=== PATIENT | male | born 1965 | race Caucasian/White ===

== ENCOUNTER 2022-06-14 21:31 | Emergency (ER) | payer OTHER, SELFPAY ==
[2022-06-14 21:34] VITALS: BP 182/70; PULSE 91; RESP 18; TEMP 36.1; O2SAT 97; BMI 34.7
[2022-06-14 22:59] LABS: MANUAL DIFF FLAG NO
[2022-06-14 23:00] LABS: Basophils Absolute Auto 0.1 X10*3/uL (0.0-0.2); Basophils Percent Auto 0.6 % (0-2); Eosinophils Absolute Auto 0.1 X10*3/uL (0.0-0.4); Eosinophils Percent Auto 1.3 % (0-4); Hematocrit 41.1 % (42.0-52.0); Imm Gran Abs Auto 0.04 X10*3/uL (0.00-0.03); Imm Gran Pct Auto 0.4 % (0.0-0.4); Lymphocytes Absolute Auto 2.3 X10*3/uL (1.2-4.9); Lymphocytes Percent Auto 23.5 % (20-40); Mean Corpuscular HGB Conc 34.1 g/dl (31.0-36.0); Mean Corpuscular Hemoglobin 31.3 pg (27.0-33.0); Mean Corpuscular Volume 91.7 fL (80.0-98.0); Mean Platelet Volume 9.3 fL (9.4-12.4); Monocytes Absolute Auto 0.6 X10*3/uL (0.1-1.2); Neutrophils Absolute Auto 6.6 x10*3/uL (2.0-8.3); Neutrophils Percent Auto 68.2 % (45-73); Platelet Count 266 X10*3/uL (160-400); Red Blood Count 4.48 X10*6/uL (4.60-5.80); Red Cell Distribution Width 13.6 % (11.0-16.0); White Blood Count 9.6 X10*3/uL (4.8-10.8)
[2022-06-14 23:16] LABS: Alanine Aminotransferase 15 U/L (0-40); Albumin Level 4.5 g/dL (3.5-5.0); Alkaline Phosphatase 89 U/L (39-117); Anion Gap 14 (12-20); Aspartate Amino Transferase 16 U/L (5-37); Bilirubin Total 0.2 mg/dL (0.0-1.0); Blood Urea Nitrogen 15 mg/dL (9-16); Calcium 9.3 mg/dL (8.4-10.2); Carbon Dioxide 26 mmol/L (22-29); Chloride 108 mmol/L (96-108); Creatinine Clr Calc Pharmacy 113.9; Estimated Glomerular Filt Rate > 60; Glucose Random 129 mg/dL (60-115); Potassium 3.9 mmol/L (3.3-5.1); Sodium 144 mmol/L (135-145); Total Protein 6.9 g/dL (6.5-8.0)
--- NOTE | 2022-06-15 00:38 | ED.LOWEXIN ---
HPI - Extremity Injury (Lower) General Chief Complaint: Extremity Injury, Lower Stated Complaint: hip pain Time Seen by Provider: 06/15/22 00:33 Source: patient Mode of arrival: ambulatory Limitations: no limitations History of Present Illness HPI Narrative: 48-year-old male morbidly obese presents emergency department complaining of left hip pain. Patient states that he has got COPD and chronic right knee pain which he needs replacement for as well as right ankle pain which he needs a fusion. He states he has been favoring that leg for some time and now his left hip is hurting it has been gradually getting worse over the past 2 weeks he denies any falls or new injuries he denies fevers chills or cough. complaint: hip injury Related Data Previous Rx's Medication Instructions Recorded prednisone 20 mg tablet 60 mg PO DAILY Asthma 5 days #15 06/15/22 tabs Allergies Allergy/AdvReac Type Severity Reaction Status Date / Time No Known Allergies Allergy Verified 06/15/22 00:38 Review of Systems Review of Systems: Review of systems: General: Patient denies any fever chills recent illness or falls Musculoskeletal: Denies back pain or body aches or other injuries HEENT: denies headache, runny nose, ear pain Respiratory: denies shortness of breath, cough Cardiovascular: no chest pain or palpitations : denies dysuria, frequency Abdomen: no nausea vomiting denies abdominal pain Extremities: no swelling, no pain Skin: no diaphoresis Yes all other systems are reviewed and are negative Physical Exam Vital Signs: Vital Signs: Last Vital Signs Temp 96.9 F 06/14/22 21:34 Pulse 91 06/14/22 21:34 Resp 18 06/14/22 21:34 BP 182/70 H 06/14/22 21:34 Pulse Ox 97 06/14/22 21:34 O2 Del Method 06/14/22 21:34 BMI result Body Mass Index 34.7 General: Well-appearing well-nourished in no signs of distress HEENT: Normocephalic atraumatic Neck: No signs of JVD, no masses no tenderness or lymphadenopathy Cardiovascular: Regular rate and rhythm Respiratory: Clear to auscultation bilaterally Abdomen: Soft nontender no masses Extremities: Normal pedal pulses no signs of edema reproducible pain to left groin worse with movement of the hip Skin: Dry warm no rashes Back: No tenderness full ROM MDM - Extremity Injury (Lower) MDM Narrative Medical decision making narrative: X-ray of the hip does not show any acute disease process patient is concerned that his hip could dislocate x-ray is normal feel comfortable discharging this patient home I explained the need to follow-up with orthopedics all increase his prednisone to 60 mg a day as he takes 20 daily will give the patient Toradol here. Was already given codeine to help him sleep at night. Lab Data Result diagrams: 06/14/22 22:52 06/14/22 22:52 Labs: Lab Results 06/14/22 06/14/22 Range/Units 22:52 22:52 WBC 9.6 (4.8-10.8) X10*3/uL RBC 4.48 L (4.60-5.80) X10*6/uL Hgb 14.0 (14.0-18.0) g/dl Hct 41.1 L (42.0-52.0) % MCV 91.7 (80.0-98.0) fL MCH 31.3 (27.0-33.0) pg MCHC 34.1 (31.0-36.0) g/dl RDW 13.6 (11.0-16.0) % Plt Count 266 (160-400) X10*3/uL MPV 9.3 L (9.4-12.4) fL Immature Gran % (Auto) 0.4 (0.0-0.4) % Neut % (Auto) 68.2 (45-73) % Lymph % (Auto) 23.5 (20-40) % Vance % (Auto) 6.0 (2-11) % Eos % (Auto) 1.3 (0-4) % Baso % (Auto) 0.6 (0-2) % Lymph # (Auto) 2.3 (1.2-4.9) X10*3/uL Vance # (Auto) 0.6 (0.1-1.2) X10*3/uL Eos # (Auto) 0.1 (0.0-0.4) X10*3/uL Baso # (Auto) 0.1 (0.0-0.2) X10*3/uL Abs Immat Gran (auto) 0.04 H (0.00-0.03) X10*3/uL Absolute Neuts (auto) 6.6 (2.0-8.3) x10*3/uL Absolute Nucleated RBC 0.000 (0.0-0.012) X10*3/uL Nucleated RBC % (auto) 0.0 (0.0-0.2) /100WBC Sodium 144 (135-145) mmol/L Potassium 3.9 (3.3-5.1) mmol/L Chloride 108 (96-108) mmol/L Carbon Dioxide 26 (22-29) mmol/L Anion Gap 14 (12-20) BUN 15 (9-16) mg/dL Creatinine 0.85 (0.5-1.4) mg/dL Estim Creat Clear Calc 113.9 Estimated GFR > 60 Random Glucose 129 H (60-115) mg/dL Calcium 9.3 (8.4-10.2) mg/dL Total Bilirubin 0.2 (0.0-1.0) mg/dL AST 16 (5-37) U/L ALT 15 (0-40) U/L Alkaline Phosphatase 89 (39-117) U/L Total Protein 6.9 (6.5-8.0) g/dL Albumin 4.5 (3.5-5.0) g/dL Discharge Plan Discharge Clinical Impression: Inguinal strain Patient Disposition: Home, Self-Care Instructions: Groin Strain (ED) Additional Instructions: Please call to follow up for your hip. [facility] Prescriptions: New prednisone 20 mg tablet 60 mg PO DAILY 5 Days Qty: 15 0RF
--- OUTSIDE RECORDS SUMMARY | 2022-06-15 00:47 | XMS_ITS | Encounter Summary ---
:1965 Author Organization Department of [facility] Address [address] [place] [id number] Support
--- OUTSIDE RECORDS SUMMARY | 2022-06-15 00:48 | XMS_ITS | Encounter Summary ---
:1965 Author Organization Department of [facility] Address [address] [place] [address] Support Name Relationship Address Phone BLAZE NICHOLE Unavailable [address] [facility] [place] [address] BLAZE NICHOLE Unavailable [address] [facility] [place] [address] ISADORA MONTES Unavailable [address] [facility] [place] [id number] Insurance Providers: All historical and current Section Date Range: From patient's date of to the date document was created.This section includes the names of all active insurance providers for
--- OUTSIDE RECORDS SUMMARY | 2022-06-15 00:49 | XMS_ITS | Encounter Summary ---
:1965 Demographics Address [address] [place] [address]
--- OUTSIDE RECORDS SUMMARY | 2022-06-15 00:53 | XMS_ITS | Encounter Summary ---
:1965
--- OUTSIDE RECORDS SUMMARY | 2022-06-15 00:55 | XMS_ITS | Encounter Summary ---
:1965
--- OUTSIDE RECORDS SUMMARY | 2022-06-15 00:57 | XMS_ITS | Continuity of Care Document ---
:1965 Author Organization [facility] Address [address] [place] [id number]- Care Team Providers Name Role Phone Demetra BUTCHER, Mihir Scott Primary Care Physician Encounter [facility] [place] Date(s): 02/09/22 - 02/11/[address] [address] Discharge Disposition: A-D/C Home Attending Physician: Amy Morin MD Admitting Physician: Mat Cazares MD Referring Physician: Not on Staff, Referring MD Allergies, Adverse Reactions, Alerts No Known Allergies Immunizations Given and Recorded Vaccine Date Status Refusal Reason
--- OUTSIDE RECORDS SUMMARY | 2022-06-15 00:58 | XMS_ITS | Continuity of Care Document ---
:1965 Author Organization [facility] Address [address] [place] [phone]
--- NOTE | 2022-06-15 01:04 | PC.NURSE ---
Pt. alert and oriented resting in bed waiting to go home.
[2022-06-15 01:05] VITALS: BP 150/64; PULSE 69; RESP 16; TEMP 36.7; O2SAT 95
[2022-06-15] MEDS: Ketorolac Tromethamine 30 MG/ML VIAL 15 MG IM (01:09)
== END 2022-06-15 01:18 | disposition home or self-care (01) ==
PROVIDERS: Emergency Provider Student in an Organized Health Care Education/Training Program
DX: S39.011A Strain of muscle, fascia and tendon of abdomen, initial encounter (principal); X50.1XXA Overexertion from prolonged static or awkward postures, initial encounter; M25.552 Pain in left hip; Y93.9 Activity, unspecified; Y92.009 Unspecified place in unspecified non-institutional (private) residence as the place of occurrence of the external cause; Y99.9 Unspecified external cause status
CPT/HCPCS: 36415; 73502; 80053; 85025; 96372; 99284; J1885

== ENCOUNTER 2022-08-23 21:32 | Emergency (ER) | payer OTHER, SELFPAY ==
[2022-08-23 21:44] VITALS: BP 194/94; PULSE 79; RESP 18; TEMP 36.6; O2SAT 96; BMI 34.0
[2022-08-23 23:18] VITALS: BP 197/103; PULSE 63; RESP 17; O2SAT 97
--- NOTE | 2022-08-24 | ED_ITS ---
HPI - Dental/Oral General Chief complaint: Dental/Oral Stated complaint: tooth pain Time Seen by Provider: 08/23/22 23:19 Source: patient Mode of arrival: ambulatory History of Present Illness HPI Narrative: 57-year-old male comes in with left lower throbbing tooth pain with multiple dental caries and states that the pain is been ongoing for 3-4 days without fever or chills and he denies any difficulty swallowing or breathing. [facility] that [facility] has [facility] 2 weeks. Related Data Previous Rx's Medication Instructions Recorded prednisone 20 mg tablet 60 mg PO DAILY Asthma 5 days #15 06/15/22 tabs amoxicillin 875 mg-potassium 1 tab PO Q12H 7 days #14 tabs 08/24/22 clavulanate 125 mg tablet ketorolac 10 mg tablet 10 mg PO Q6H PRN pain 5 days #20 08/24/22 tabs Allergies Allergy/AdvReac Type Severity Reaction Status Date / Time No Known Allergies Allergy Verified 08/23/22 22:21 Review of Systems Review of Systems: Pertinent positives and negatives as stated in HPI 10 point review of systems is otherwise negative. PMFSH Past Medical History Source: nursing notes reviewed Social History Social History Advance Directives: No Advance Directives Information Provided: Yes Physical Exam Vital Signs: Vital Signs: Last Vital Signs Temp 97.8 F 08/23/22 21:44 Pulse 63 08/23/22 23:18 Resp 17 08/23/22 23:18 BP 197/103 H 08/23/22 23:18 Pulse Ox 97 08/23/22 23:18 O2 Del Method 08/23/22 23:18 BMI result Body Mass Index 34.0 VITAL SIGNS: Reviewed. GENERAL: Well developed, well nourished, in no acute distress. HEAD: Normocephalic/atraumatic EYES: PERRLA, EOMI EARS: Ext canals without abnormality OROPHARYNX: no oral lesions noted, posterior pharynx clear, patient has multiple dental caries with broken teeth, no obvious gingival abscess LUNGS: Normal breath sounds. No adventitious sounds or accessory muscle use. SpO2<97> CARDIOVASCULAR: Regular rate and rhythm without noted murmurs ABDOMEN: Soft, non-tender, non-distended with bowel sounds. MUSCULOSKELETAL: No tenderness, deformities, or effusions noted on gross in spection. EXTREMITIES: No cyanosis, clubbing or edema. SKIN: Inspection of the skin reveals no rashes NEUROLOGIC: Alert and oriented x 4. Strength and sensation to light touch were grossly intact x 4. Course Course Course Narrative: 57-year-old male with history and clinical presentation consistent with dental pain and suspected infection, started on antibiotics with initial dose given here in the emergency room and patient also received topical anesthetic as well as combination Tylenol/Toradol. He was otherwise discharged home in stable condition and has a follow-up appoint with his dentist in 2 weeks. Discharge Plan Discharge Clinical Impression: Toothache, Dental caries, Dental abscess Patient Disposition: Home, Self-Care Instructions: Dental Abscess (ED), Toothache (ED) Additional Instructions: 1. Complete the entire course of antibiotics. 2. Tylenol 1000 mg, orally, every 6 hours as needed for pain control. Do not exceed 4000 mg within 24 hours. 3. Please keep the dental appointment as scheduled. Return to the ER for worsening symptoms. Prescriptions: New amoxicillin-pot clavulanate 875-125 mg tablet 1 tab PO Q12H 7 Days Qty: 14 0RF ketorolac 10 mg tablet 10 mg PO Q6H PRN (Reason: pain) 5 Days Qty: 20 0RF Rx Instructions: 1. Patient received Toradol in the emergency room. No Action prednisone 20 mg tablet 60 mg PO DAILY 5 Days Qty: 15 0RF
--- NOTE | 2022-08-24 00:06 | MHC.EDTECH ---
Labs not needed per Dr Morfin.
[2022-08-24] MEDS: Acetaminophen 325 MG TABLET 975 MG PO (00:11)
[2022-08-24] MEDS: Ketorolac Tromethamine 15 MG/ML VIAL IM (00:12)
[2022-08-24] MEDS: Amoxicillin/Potassium Clav 875 MG TABLET PO (00:12)
== END 2022-08-24 01:36 | disposition home or self-care (01) ==
PROVIDERS: Emergency Provider Student in an Organized Health Care Education/Training Program
DX: K04.7 Periapical abscess without sinus (principal); K08.89 Other specified disorders of teeth and supporting structures; K02.9 Dental caries, unspecified
CPT/HCPCS: 96372; 99283; 99284; J1885

== ENCOUNTER 2022-10-18 22:42 | Emergency (ER) | payer OTHER, SELFPAY ==
[2022-10-18 23:45] VITALS: BP 172/85; PULSE 71; RESP 18; TEMP 36.6; O2SAT 96; BMI 34.0
[2022-10-19 04:26] LABS: Basophils Absolute Auto 0.1 X10*3/uL (0.0-0.2); Basophils Percent Auto 0.7 % (0-2); Eosinophils Absolute Auto 0.2 X10*3/uL (0.0-0.4); Eosinophils Percent Auto 1.6 % (0-4); Hematocrit 42.6 % (42.0-52.0); Hemoglobin 14.4 g/dl (14.0-18.0); Imm Gran Abs Auto 0.03 X10*3/uL (0.00-0.03); Imm Gran Pct Auto 0.3 % (0.0-0.4); Lymphocytes Absolute Auto 2.1 X10*3/uL (1.2-4.9); Lymphocytes Percent Auto 19.9 % (20-40); MANUAL DIFF FLAG NO; Mean Corpuscular HGB Conc 33.8 g/dl (31.0-36.0); Mean Corpuscular Hemoglobin 30.8 pg (27.0-33.0); Mean Corpuscular Volume 91.2 fL (80.0-98.0); Mean Platelet Volume 9.3 fL (9.4-12.4); Monocytes Absolute Auto 0.6 X10*3/uL (0.1-1.2); Monocytes Percent Auto 5.8 % (2-11); Neutrophils Absolute Auto 7.6 x10*3/uL (2.0-8.3); Neutrophils Percent Auto 71.7 % (45-73); Platelet Count 240 X10*3/uL (160-400); Red Blood Count 4.67 X10*6/uL (4.60-5.80); Red Cell Distribution Width 13.5 % (11.0-16.0); White Blood Count 10.5 X10*3/uL (4.8-10.8)
[2022-10-19 04:46] LABS: Alanine Aminotransferase 10 U/L (0-40); Albumin Level 4.1 g/dL (3.5-5.0); Alkaline Phosphatase 83 U/L (39-117); Anion Gap 17 (12-20); Aspartate Amino Transferase 14 U/L (5-37); Bilirubin Total 0.3 mg/dL (0.0-1.0); Blood Urea Nitrogen 10 mg/dL (9-16); Calcium 8.7 mg/dL (8.4-10.2); Carbon Dioxide 18 mmol/L (22-29); Chloride 107 mmol/L (96-108); Creatinine Clr Calc Pharmacy 118.3; Estimated Glomerular Filt Rate > 60; Glucose Random 144 mg/dL (60-115); Potassium 3.8 mmol/L (3.3-5.1); Sodium 138 mmol/L (135-145); Total Protein 6.5 g/dL (6.5-8.0)
[2022-10-19 07:21] VITALS: BP 168/93; PULSE 72; RESP 19; TEMP 36.6; O2SAT 97
--- NOTE | 2022-10-19 08:26 | ED.DENTAL ---
HPI - Dental/Oral General Chief complaint: Dental/Oral Stated complaint: tooth pain Time Seen by Provider: 10/19/22 08:19 Source: patient Mode of arrival: ambulatory Limitations: no limitations History of Present Illness HPI Narrative: 57-year-old male with a history of COPD who presents to the emergency room with left lower dental pain for the last few days. Patient reports he knows that he has extensive dental caries. He did have an appointment this week with his dentist but he had to cancel it due to a family emergency. He bit down on a piece of chicken yesterday which caused increase in pain and the dental region. Patient denies any difficulty breathing, difficulty swallowing, fevers or chills. Related Data Previous Rx's Medication Instructions Recorded prednisone 20 mg tablet 60 mg PO DAILY Asthma 5 days #15 06/15/22 tabs amoxicillin 875 mg-potassium 1 tab PO Q12H 7 days #14 tabs 08/24/22 clavulanate 125 mg tablet ketorolac 10 mg tablet 10 mg PO Q6H PRN pain 5 days #20 08/24/22 tabs amoxicillin 500 mg capsule 500 mg PO BID #20 caps 10/19/22 ketorolac 10 mg tablet 10 mg PO Q8H PRN pain #15 tabs 10/19/22 Allergies Allergy/AdvReac Type Severity Reaction Status Date / Time No Known Allergies Allergy Verified 10/18/22 23:49 Review of Systems Review of Systems: Yes all other systems are reviewed and are negative Constitutional: Constitutional: Reports no additional constitutional complaints, Denies body ache(s), Denies chills, Denies fever(s), Denies headache(s) and Denies weakness Eyes: Eyes: Reports no additional eye complaints and Denies change in vision ENT: Reports system reviewed and no additional complaints, except as documented, Reports dental pain, Denies dizziness, Denies headache(s), Denies nasal congestion, Denies nasal discharge and Denies neck pain Cardiovascular: Cardiovascular: Reports no additional cardiovascular complaints, Denies chest pain, Denies leg edema and Denies dyspnea Respiratory: Respiratory: Reports no additional respiratory complaints, Denies cough and Denies dyspnea Gastrointestinal: Gastrointestinal: Reports no additional gastrointestinal complaints, Denies abdominal pain, Denies diarrhea, Denies nausea and Denies vomiting Genitourinary: Genitourinary: Denies urinary incontinence Musculoskeletal: Musculoskeletal: Reports no additional musculoskeletal complaints, Denies back pain, Denies arthralgias, Denies joint swelling, Denies neck pain, Denies numbness and Denies tingling Integumentary/Breasts: Skin/Breast: Reports system reviewed and no additional complaints, except as docu and Denies rash Neurologic: Reports system reviewed and no additional complaints, except as documented, Denies Abnormal speech present, Denies dizziness, Denies headache(s), Denies numbness, Denies tingling and Denies weakness PMFSH Past Medical History Attestation statement: The following information was validated with the patient. Source: old records reviewed and nursing notes reviewed Social History Social History Advance Directives: No Advance Directives Information Provided: No Physical Exam Vital Signs: Vital Signs: Last Vital Signs Temp 97.8 F 10/19/22 07:21 Pulse 72 10/19/22 07:21 Resp 19 10/19/22 07:21 BP 168/93 H 10/19/22 07:21 Pulse Ox 97 10/19/22 07:21 O2 Del Method 10/19/22 07:21 BMI result Body Mass Index 34.0 Const: General: cooperative, healthy appearing, comfortable and no acute distress Orientation/consciousness: patient oriented x3 Limitations: no limitations HEENT: Other: no Trismus Head: Yes normal to inspection Ears: hearing grossly normal bilaterally General nose exam: Normal external nose present Face and sinus: Yes normal facial exam Mouth: Normal oral and palatal mucosa present Teeth and gingiva: caries Teeth image: 1. extensive caries- broken tooth with exposed nerve root with local gingival swelling and tenderness with no palpable abscess Throat: Yes posterior oropharynx normal Eyes: General: appearance normal, both eyes and all related structures Pupils: Equal, round and reactive pupils present Neck: Neck: Yes normal visual inspection, Yes full ROM and Yes no lymphadenopathy Chest: Chest palpation & inspection: normal inspection of the chest Resp: Effort & Inspection: normal respiratory effort Auscultation: clear to auscultation bilaterally Cardio: Rate: regular rate Rhythm: regular rhythm Peripheral pulses: Peripheral pulses 2+ throughout GI: Inspection: Yes normal to inspection Palpation (GI): Soft to palpation and nontender Auscultation: normal bowel sounds Back/Spine/Pelvis: Thoracic/Lumbar Spine: thoracic and lumbar spine normal to inspection Skin: General skin exam: no rashes or lesions noted Neuro: General: patient oriented x3, no focal motor deficits and normal sensation to monofilament Cranial nerves: Yes Equal, round and reactive pupils present Cognition (Neuro): normal cognition Speech: No Abnormal speech present Gait exam (Neuro): Normal gait present Motor exam (neuro): 5/5 motor strength present throughout Extrem: General: Yes normal to inspection Medications Administered Discontinued Medications Generic Name Dose Route Start Last Admin Trade Name Lynda PRN Reason Stop Dose Admin Ketorolac Tromethamine 30 mg 10/19/22 08:24 10/19/22 08:39 Ketorolac Tromethamine 30 Mg/Ml Vial IM 10/19/22 08:25 30 mg ONCE ONE Administration Medical Decision Making Medical Decision Making [facility] Narrative: 57-year-old male here with left lower dental pain for the last few days which is increased after chewing some chicken yesterday. Patient does have a dentist but missed his appointment this week due to a family emergency. Patient with extensive dental caries on exam with focal gingival erythema and swelling over the left lower dental area with no palpable abscess. No evidence of Alexy's angina or cellulitis. Patient was started on oral antibiotic, NSAIDs for pain relief. Recommend follow-up with dentist outpatient. Differential Diagnosis Differential Diagnoses: The differential diagnosis associated with the presentation includes Dental infection, dental abscess, cellulitis, Alexy's angina Lab Data [facility] Lab Attestation statement: I reviewed the patient's lab results. 10/19/22 04:21 10/19/22 04:21 Labs: Lab Results 10/19/22 10/19/22 Range/Units 04:21 04:21 WBC 10.5 (4.8-10.8) X10*3/uL RBC 4.67 (4.60-5.80) X10*6/uL Hgb 14.4 (14.0-18.0) g/dl Hct 42.6 (42.0-52.0) % MCV 91.2 (80.0-98.0) fL MCH 30.8 (27.0-33.0) pg MCHC 33.8 (31.0-36.0) g/dl RDW 13.5 (11.0-16.0) % Plt Count 240 (160-400) X10*3/uL MPV 9.3 L (9.4-12.4) fL Immature Gran % (Auto) 0.3 (0.0-0.4) % Neut % (Auto) 71.7 (45-73) % Lymph % (Auto) 19.9 L (20-40) % Faulk % (Auto) 5.8 (2-11) % Eos % (Auto) 1.6 (0-4) % Baso % (Auto) 0.7 (0-2) % Lymph # (Auto) 2.1 (1.2-4.9) X10*3/uL Faulk # (Auto) 0.6 (0.1-1.2) X10*3/uL Eos # (Auto) 0.2 (0.0-0.4) X10*3/uL Baso # (Auto) 0.1 (0.0-0.2) X10*3/uL Abs Immat Gran (auto) 0.03 (0.00-0.03) X10*3/uL Absolute Neuts (auto) 7.6 (2.0-8.3) x10*3/uL Absolute Nucleated RBC 0.000 (0.0-0.012) X10*3/uL Nucleated RBC % (auto) 0.0 (0.0-0.2) /100WBC Sodium 138 (135-145) mmol/L Potassium 3.8 (3.3-5.1) mmol/L Chloride 107 (96-108) mmol/L Carbon Dioxide 18 L (22-29) mmol/L Anion Gap 17 (12-20) BUN 10 (9-16) mg/dL Creatinine 0.80 (0.5-1.4) mg/dL Estim Creat Clear Calc 118.3 Estimated GFR > 60 Random Glucose 144 H (60-115) mg/dL Calcium 8.7 D (8.4-10.2) mg/dL Total Bilirubin 0.3 (0.0-1.0) mg/dL AST 14 (5-37) U/L ALT 10 (0-40) U/L Alkaline Phosphatase 83 (39-117) U/L Total Protein 6.5 (6.5-8.0) g/dL Albumin 4.1 (3.5-5.0) g/dL Prescription Management I considered prescription management with: Antibiotic patient given antibiotic for dental infection Discharge Plan Discharge Clinical Impression: Toothache Patient Disposition: Home, Self-Care Instructions: Toothache (ED) Additional Instructions: follow-up with your dentist salt water gargles, soft foods Prescriptions: New amoxicillin 500 mg capsule 500 mg PO BID Qty: 20 0RF ketorolac 10 mg tablet 10 mg PO Q8H PRN (Reason: pain) Qty: 15 0RF Rx Instructions: patient received 1st dose in the emergency room No Action prednisone 20 mg tablet 60 mg PO DAILY 5 Days Qty: 15 0RF amoxicillin-pot clavulanate 875-125 mg tablet 1 tab PO Q12H 7 Days Qty: 14 0RF ketorolac 10 mg tablet 10 mg PO Q6H PRN (Reason: pain) 5 Days Qty: 20 0RF Rx Instructions: 1. Patient received Toradol in the emergency room. Referrals: Physician,Unknown J [Primary Care Provider] - Interventions: ED Discharge Assessment Last Done: 10/19/22 08:47 Discharge Date/Time: 10/19/22 08:48
[2022-10-19] MEDS: Ketorolac Tromethamine 30 MG/ML VIAL IM (08:39)
== END 2022-10-19 08:48 | disposition home or self-care (01) ==
PROVIDERS: Emergency Provider Student in an Organized Health Care Education/Training Program
DX: K08.89 Other specified disorders of teeth and supporting structures (principal); K02.9 Dental caries, unspecified; K06.8 Other specified disorders of gingiva and edentulous alveolar ridge
CPT/HCPCS: 36415; 80053; 85025; 96372; 99284; J1885

== ENCOUNTER 2023-02-27 19:07 | Inpatient (IN) | payer OTHER, SELFPAY ==
--- NOTE | ~2023-02-27 | CT_ITS ---
EXAMINATION: CT SOFT TISSUE NECK WITH CONTRAST CLINICAL INFORMATION: Upper tooth dental abscess COMPARISON: None. TECHNIQUE: Following the administration of 60 mL of Omnipaque 300 intravenous contrast, helical imaging was performed in the axial plane with generation of coronal and sagittal reformatted images. This CT examination was performed using dose optimization techniques as appropriate, variously including the following: *Automated exposure control. *Adjustment of mA and/or kV according to patient size (this includes techniques or standardized protocols for targeted exams where dose is matched to indication/reason for exam; i.e. extremities or head). *Use of iterative reconstruction technique. DLP: 749 mGy-cm. FINDINGS: Multiple scattered dental carious with periapical lucencies with scattered erosions along the lingual and buccal cortices. Periapical lucency associated with the right maxillary lateral incisor tooth with focal dehiscence of the overlying buccal cortex. There is asymmetric thickening of the gingivobuccal soft tissues of the right upper lip with a small hypoenhancing region overlying the right anterior maxillary alveolar ridge and abutting the nasal spine measuring 1.5 x 0.7 cm suspicious for developing odontogenic abscess. Cellulitic changes within the right facial soft tissues. The fat planes of the skull base and soft tissues of the nasopharynx are unremarkable. Chronic left lamina papyracea fracture deformity with herniated medial extraconal fat with deformity and tenting of the left medial rectus muscle, likely tethered to adjacent scar tissue and partially herniated into the defect. Chronic nasal bone fractures. Moderate polypoid mucosal disease within the alveolar recess of the right maxillary sinus and air-fluid level in the left maxillary sinus, the latter which can be correlated clinically for the possibility of acute sinusitis. The temporomandibular joints are normal. The oral cavity is unremarkable. Small torus mandibulari. Symmetric presumably reactive prominence of the bilateral palatine tonsils. The hypopharynx is unremarkable. Apposition of the vocal cords limits assessment of the glottis, otherwise the supraglottic and subglottic airway are normal. The submandibular and parotid glands are normal. The thyroid gland is normal. Borderline enlarged right level 1B lymph node with preservation of the fatty keo. Otherwise no pathologic size criteria or morphologically suspicious lymph nodes. Status post median sternotomy and CABG. Centrilobular and paraseptal emphysema. Presumably adherent secretions along the right lateral trachea and ventral wall of the proximal thoracic trachea. Common origin of the innominate and left common carotid arteries. Eccentric fibrofatty plaque along the left greater than right common carotid arteries contributes to mild luminal narrowing, more pronounced on the left. Multilevel cervical spondylosis on the background of congenital spinal canal narrowing with apparent high-grade spinal canal stenosis at C5-C6 and C3-C4. Multilevel high-grade neural foraminal stenosis. The imaged portions of the brain parenchyma are unremarkable. Dominant left vertebral artery with the right intradural vertebral artery terminating in PICA, a normal anatomic variant. Mild calcified plaque along the bilateral carotid siphons. Preserved opacification of the intracranial vascular structures. CT/CT soft tissue neck w IV con IMPRESSION: Periapical lucency associated with the right maxillary lateral incisor tooth with focal dehiscence of the overlying buccal cortex. Asymmetric thickening of the gingivobuccal soft tissues of the right upper lip with hypoenhancing region overlying the right anterior maxillary alveolar ridge abutting the nasal spine measuring 1.5 x 0.7 cm suspicious for developing odontogenic abscess. Cellulitic changes within the right facial soft tissues. Chronic left lamina papyracea fracture deformity with herniated medial extraconal fat with deformity and tenting of the left medial rectus muscle, likely tethered to adjacent scar tissue and partially herniated into the defect. Moderate polypoid mucosal disease within the alveolar recess of the right maxillary sinus and air-fluid level in the left maxillary sinus, the latter which can be correlated clinically for the possibility of acute sinusitis. Multilevel cervical spondylosis on the background of congenital spinal canal narrowing with apparent high-grade spinal canal stenosis at C5-C6 and C3-C4. Multilevel high-grade neural foraminal stenosis. If there is referrable myelopathy/radiculopathy, further evaluation of these findings with dedicated cervical spine MRI may be performed as clinically warranted.
[2023-02-27 19:10] VITALS: BP 151/78; PULSE 94; RESP 16; TEMP 36.4; O2SAT 98; BMI 35.3
--- NOTE | 2023-02-27 19:11 | ED_ITS ---
HPI - General Adult General Chief complaint: Dental/Oral Stated complaint: toothache, antibiotics arent working Time Seen by Provider: 02/27/23 19:28 Source: patient Mode of arrival: ambulatory Limitations: no limitations History of Present Illness HPI narrative: This is a 57-year-old male history of COPD, dental pain, presenting to the emergency department complaints of upper right dental pain for the past few days worsening [facility] Patient reports he has a significant history of dental caries, he recently was scheduled to see a dentist however was not able to see one due to a family emergency. Patient reports pain is worse with eating, cold and hot foods. Patient denies any fevers, chills, difficulty breathing, difficulty swelling, nausea, vomiting, abdominal pain. Reports he was seen at [facility] and discharged on some oral antibiotics unsure which one. Related Data Previous Rx's Medication Instructions Recorded prednisone 20 mg tablet 60 mg PO DAILY Asthma 5 days #15 06/15/22 tabs amoxicillin 875 mg-potassium 1 tab PO Q12H 7 days #14 tabs 08/24/22 clavulanate 125 mg tablet ketorolac 10 mg tablet 10 mg PO Q6H PRN pain 5 days #20 08/24/22 tabs amoxicillin 500 mg capsule 500 mg PO BID #20 caps 10/19/22 ketorolac 10 mg tablet 10 mg PO Q8H PRN pain #15 tabs 10/19/22 Allergies Allergy/AdvReac Type Severity Reaction Status Date / Time No Known Allergies Allergy Verified 10/18/22 23:49 Review of Systems Review of Systems: Constitutional : No Weight loss, No Fever, No Chills, No Fatigue, No Malaise ENT/Mouth : No sore throat, No Rhinorrhea, + toothache Eyes: No Eye Pain, No Swelling, No Redness Cardiovascular : No Chest Pain, No SOB, No Dyspnea on Exertion, No Orthopnea, No Edema, No Palpitations Respiratory : No Cough, No Sputum, No Wheezing Gastrointestinal : No Nausea, No Vomiting, No Diarrhea, No Constipation, No abdominal Pain, No Hematochezia, No Melena Genitourinary : No Dysuria, No Urinary Frequency, No Hematuria, Musculoskeletal : No joint pain, No Myalgias, No Joint Swelling Skin : No Skin Lesions, No rash Neuro : No Weakness, No Numbness, No Dizziness, No Headache Psych : No Anxiety/Panic, No Depression All other systems reviewed and are negative Yes all other systems are reviewed and are negative [facility] Past Medical History Attestation statement: The following information was validated with the patient. Source: old records reviewed and nursing notes reviewed Social History Social History Alcohol intake: never Smoked in Last 30 Days: No Use of substances other than those prescribed or required for medical reasons: No Advance Directives: No Advance Directives Information Provided: No Physical Exam ED Vital Signs: Vital Signs - 24 hr 02/27/23 19:10 Temperature 97.6 F Pulse Rate 94 Respiratory Rate 16 Blood Pressure 151/78 H Pulse Oximetry 98 Oxygen Delivery Method Room Air BMI result Body Mass Index 35.3 vss Appearance: Alert.? Oriented X3.? No acute distress.? Head: Normocephalic, atraumatic, no step-offs or deformities + area of errythema and warmth below right lower eyelid. Eyes: Pupils equal, round and reactive to light.? ENT: Pharynx normal.?+ tooth 8 w/ broken tooth and TTP, ?extensive caries- broken tooth with exposed nerve root with local gingival swelling and tenderness with no palpable abscess. Normal hard and soft palate. Neck: Normal inspection.? Neck supple.? CVS: Normal heart rate and rhythm.? Pulses normal.? Respiratory: No respiratory distress.? Breath sounds normal.? Abdomen: Soft and nontender.? Skin: Skin warm and dry.? Normal skin color.? Normal skin turgor.? Extremities: No lower extremity edema.? No calf ttp. 5/5 strength to bilateral upper and lower extremities Neuro: Oriented X 3.? No motor deficit.? No sensory deficit. CN 2-12 intact Course Course Course Narrative: This is an RME: Additional HPI, ROS, PE not included below will be deferred to primary provider. [id number]-male presenting to ER for evaluation of right upper dental pain. Has been on amoxicillin for the last 3 days [facility] without any relief. No fevers or chills. Poor dentition throughout. Right sided facial swelling. Vital signs stable. ?fluctuance may benefit with needle aspiration. No visual changes. Reevaluation(s) Reevaluation #1: Patient's CBC appears to be around baseline. Chemistry no acute findings requiring intervention. Lactic negative. Patient's CT with periapical lucency associated with the right maxillary lateral incisor tooth with focal dehiscence of the overlying pupil cortex. Asymmetric thickening of the gingiva lobe you call soft tissues of the right upper lip with hypo enhancing region overlying the right anterior maxillary alveolar ridge concerning for developing odontogenic abscess. Cellulitic changes within the right facial soft tissue. Patient receiving clindamycin. Spoke to hospitalist to admit this patient. Time: 23:09 Medications Administered Discontinued Medications Generic Name Dose Route Start Last Admin Trade Name Freq PRN Reason Stop Dose Admin Clindamycin Phosphate 600 mg in 50 mls @ 100 mls/hr 02/27/23 19:59 02/27/23 21:04 Cleocin IV 02/27/23 20:28 Infused ONCE ONE Infusion Iohexol 60 ml 02/27/23 21:32 02/27/23 21:34 Iohexol 350 Mg/Ml 100 Ml Infus..Btl IV 02/27/23 21:33 60 ml ONCE ONE Administration Medical Decision Making Medical Decision Making [facility] Narrative: 193 57-year-old male presents with dental pain. Worsening for the past few weeks despite antibiotics. Physical exam significant for tooth 8 w/ broken tooth and TTP, ?extensive caries- broken tooth with exposed nerve root with local gingival swelling and tenderness with no palpable abscess. Area of erythema and warmth under right eyelid. Concerns for dental caries, with expressed nerve root. Possible dental abscess with tracking to right-sided face. No signs of airway compromise no signs of ludwigs Plan labs, imaging. Patient will likely require hospital admission as he has failed p.o. therapy Differential Diagnosis Differential Diagnoses: The differential diagnosis associated with the presentation includes Concerns for dental caries, with expressed nerve root. Possible dental abscess with tracking to right-sided face. No signs of airway compromise no signs of ludwigs Admission/Observation Consideration of admission/observation: Escalation of care including admission/observation considered Likely Lab Data [facility] Lab Attestation statement: I reviewed the patient's lab results. 02/27/23 20:21 02/27/23 20:21 Labs: Lab Results 02/27/23 02/27/23 02/27/23 Range/Units 20:21 20:21 20:21 WBC 9.9 (4.8-10.8) X10*3/uL RBC 4.29 L (4.60-5.80) X10*6/uL Hgb 13.5 L (14.0-18.0) g/dl Hct 39.8 L (42.0-52.0) % MCV 92.8 (80.0-98.0) fL MCH 31.5 (27.0-33.0) pg MCHC 33.9 (31.0-36.0) g/dl RDW 14.0 (11.0-16.0) % Plt Count 266 (160-400) X10*3/uL MPV 8.9 L (9.4-12.4) fL Immature Gran % (Auto) 0.2 (0.0-0.4) % Neut % (Auto) 69.1 (45-73) % Lymph % (Auto) 22.7 (20-40) % [place] % (Auto) 6.5 (2-11) % Eos % (Auto) 1.0 (0-4) % Baso % (Auto) 0.5 (0-2) % Lymph # (Auto) 2.3 (1.2-4.9) X10*3/uL [place] # (Auto) 0.7 (0.1-1.2) X10*3/uL Eos # (Auto) 0.1 (0.0-0.4) X10*3/uL Baso # (Auto) 0.1 (0.0-0.2) X10*3/uL Abs Immat Gran (auto) 0.02 (0.00-0.03) X10*3/uL Absolute Neuts (auto) 6.9 (2.0-8.3) x10*3/uL Absolute Nucleated RBC 0.000 (0.0-0.012) X10*3/uL Nucleated RBC % (auto) 0.0 (0.0-0.2) /100WBC Sodium 142 (135-145) mmol/L Potassium 4.0 (3.3-5.1) mmol/L Chloride 107 (96-108) mmol/L Carbon Dioxide 27 (22-29) mmol/L Anion Gap 12 (12-20) BUN 13 (9-16) mg/dL Creatinine 0.72 (0.5-1.4) mg/dL Estim Creat Clear Calc 134.0 Estimated GFR > 60 Random Glucose 108 (60-115) mg/dL Lactic Acid 0.9 (0.5-2.0) mmol/L Calcium 8.9 (8.4-10.2) mg/dL Total Bilirubin 0.4 (0.0-1.0) mg/dL AST 17 (5-37) U/L ALT 13 (0-40) U/L Alkaline Phosphatase 82 (39-117) U/L Total Protein 7.0 (6.5-8.0) g/dL Albumin 4.1 (3.5-5.0) g/dL Independent Interpretation I performed an independent interpretation of an: CT Scan Radiology Impression Discussion of test interpretation with radiology: I have reviewed the radiologist's reading. Core Measures AMI core measures followed: Yes Measure exclusions: not indicated Critical Care Time Critical Care Time Critical Care Time: Yes Total Critical Care Time: 35 Attestation: I attest to this time spent taking care of the patient, obtaining history, physical, reviewing labs, imaging, IV antibiotic Discharge Plan Discharge Clinical Impression: Dental caries, Toothache, Cellulitis Patient Disposition: Admitted As Inpatient
[2023-02-27 20:25] LABS: MANUAL DIFF FLAG NO
[2023-02-27 20:28] LABS: Basophils Absolute Auto 0.1 X10*3/uL (0.0-0.2); Basophils Percent Auto 0.5 % (0-2); Eosinophils Absolute Auto 0.1 X10*3/uL (0.0-0.4); Hematocrit 39.8 % (42.0-52.0); Hemoglobin 13.5 g/dl (14.0-18.0); Imm Gran Abs Auto 0.02 X10*3/uL (0.00-0.03); Imm Gran Pct Auto 0.2 % (0.0-0.4); Lymphocytes Absolute Auto 2.3 X10*3/uL (1.2-4.9); Lymphocytes Percent Auto 22.7 % (20-40); Mean Corpuscular HGB Conc 33.9 g/dl (31.0-36.0); Mean Corpuscular Hemoglobin 31.5 pg (27.0-33.0); Mean Corpuscular Volume 92.8 fL (80.0-98.0); Mean Platelet Volume 8.9 fL (9.4-12.4); Monocytes Absolute Auto 0.7 X10*3/uL (0.1-1.2); Monocytes Percent Auto 6.5 % (2-11); Neutrophils Absolute Auto 6.9 x10*3/uL (2.0-8.3); Neutrophils Percent Auto 69.1 % (45-73); Platelet Count 266 X10*3/uL (160-400); Red Blood Count 4.29 X10*6/uL (4.60-5.80); White Blood Count 9.9 X10*3/uL (4.8-10.8)
[2023-02-27] MEDS: Clindamycin Phosphate/D5W 600 MG/50 ML PIGGYBACK 100 MG IV (20:34)
[2023-02-27 20:43] LABS: Lactic Acid 0.9 mmol/L (0.5-2.0)
[2023-02-27 20:50] LABS: Alanine Aminotransferase 13 U/L (0-40); Albumin Level 4.1 g/dL (3.5-5.0); Alkaline Phosphatase 82 U/L (39-117); Anion Gap 12 (12-20); Aspartate Amino Transferase 17 U/L (5-37); Bilirubin Total 0.4 mg/dL (0.0-1.0); Blood Urea Nitrogen 13 mg/dL (9-16); Calcium 8.9 mg/dL (8.4-10.2); Carbon Dioxide 27 mmol/L (22-29); Chloride 107 mmol/L (96-108); Estimated Glomerular Filt Rate > 60; Glucose Random 108 mg/dL (60-115); Sodium 142 mmol/L (135-145)
[2023-02-27] MEDS: iohexoL 350 MG/ML 100 ML INFUS..BTL 60 ML IV (21:34)
--- NOTE | 2023-02-27 22:32 | PM.IMHP ---
History of Present Illness Date of Service: 02/27/23 Chief Complaint: Facial swelling This is a 57-year-old male with pertinent history of CAD status post stent, essential hypertension, mixed hyperlipidemia who presents to the emergency department for evaluation of facial swelling and dental pain. Patient states that about 4 days prior to presentation, patient had a tooth which broke and hit his gums. Since then, he has been having pain, redness and swelling. Patient was prescribed p.o. antibiotics at the [facility] which he was compliant with. Patient states the pain, redness and swelling worsened over the last 3-4 days. On the day of presentation, he also had associated right-sided facial swelling. He does have a history of dental caries but has not been able to see a dentist due to family emergency. No fever, chills, nausea, vomiting, abdominal pain, chest discomfort, palpitations, shortness of breath, changes in urinary or bowel habits. In the emergency department, imaging with cellulitic changes within right facial soft tissues. Also concern for developing odontogenic abscess Review of Systems Constitutional: Constitutional: Reports no additional constitutional complaints ENT: Reports dental pain and Reports facial pain Cardiovascular: Cardiovascular: Reports no additional cardiovascular complaints Respiratory: Respiratory: Reports no additional respiratory complaints Gastrointestinal: Gastrointestinal: Reports no additional gastrointestinal complaints Genitourinary: Genitourinary: Reports no additional male genitourinary complaints [facility] Medical History Coronary artery disease Essential hypertension Mixed hyperlipidemia Pertinent family history: No family history of early CAD Social History Alcohol intake: never Smoked in Last 30 Days: No Use of substances other than those prescribed or required for medical reasons: No Advance Directives: No Advance Directives Information Provided: No Meds Allergies Allergy/AdvReac Type Severity Reaction Status Date / Time No Known Allergies Allergy Verified 10/18/22 23:49 Active Medications: Current Medications Acetaminophen (Acetaminophen 325 Mg Tablet) 650 mg PO Q6H PRN PRN Reason: Pain, Mild (Pain Scale 1-3) Enoxaparin Sodium (Enoxaparin Sodium 40 Mg/0.4 Ml Syringe) 40 mg SUBCUT Q24H ALBERTO Ampicillin Sodium/Sulbactam (Sodium 3 gm/ Sodium Chloride) 100 mls @ 200 mls/hr IV Q6H [facility] Melatonin (Melatonin 3 Mg Tablet) 6 mg PO BEDTIME PRN PRN Reason: Insomnia Ondansetron HCl (Ondansetron Hcl 4 Mg/2 Ml Vial) 4 mg IVPUSH Q8H PRN PRN Reason: Nausea and Vomiting Sodium Chloride (0.9 % Sodium Chloride Flush 3 Ml Syringe) 3 ml IVFLUSH QSHIFT ALBERTO Physical Exam Vital Signs and Narrative: Vital Signs: Last Vital Signs Temp 97.6 F 02/27/23 19:10 Pulse 94 02/27/23 19:10 Resp 16 02/27/23 19:10 BP 151/78 H 02/27/23 19:10 Pulse Ox 98 02/27/23 19:10 O2 Del Method Room Air 02/27/23 19:10 BMI result Body Mass Index 35.3 Middle-aged male lying in bed in no distress Neck supple, no JVD ENT: Extensive caries seen and multiple broken tooth, right-sided local gingival swelling and tenderness with no fluctuation Regular rate and rhythm, S1-S2 heard Regular breath sounds bilaterally, no wheezing or crackles appreciated Abdomen soft nontender, no guarding, no rigidity Patient is awake, alert and oriented to self, place, time and person ; no focal motor deficit Psych: Normal mood No pedal edema Results Labs 02/27/23 20:21 02/27/23 20:21 Labs: Laboratory Results - last 24 hr 02/27/23 02/27/23 02/27/23 20:21 20:21 20:21 MCV 92.8 MCH 31.5 MCHC 33.9 RDW 14.0 Plt Count 266 MPV 8.9 L Immature Gran % (Auto) 0.2 Neut % (Auto) 69.1 Lymph % (Auto) 22.7 [place] % (Auto) 6.5 Eos % (Auto) 1.0 Baso % (Auto) 0.5 Lymph # (Auto) 2.3 [place] # (Auto) 0.7 Eos # (Auto) 0.1 Baso # (Auto) 0.1 Abs Immat Gran (auto) 0.02 Absolute Neuts (auto) 6.9 Absolute Nucleated RBC 0.000 Nucleated RBC % (auto) 0.0 Anion Gap 12 Estim Creat Clear Calc 134.0 Estimated GFR > 60 Random Glucose 108 Lactic Acid 0.9 Calcium 8.9 Total Bilirubin 0.4 AST 17 ALT 13 Alkaline Phosphatase 82 Total Protein 7.0 Albumin 4.1 Imaging Radiologist's Impressions: Impressions Soft Tissue Neck CT 02/27/23 21:30 IMPRESSION: Periapical lucency associated with the right maxillary lateral incisor tooth with focal dehiscence of the overlying buccal cortex. Asymmetric thickening of the gingivobuccal soft tissues of the right upper lip with hypoenhancing region overlying the right anterior maxillary alveolar ridge abutting the nasal spine measuring 1.5 x 0.7 cm suspicious for developing odontogenic abscess. Cellulitic changes within the right facial soft tissues. Chronic left lamina papyracea fracture deformity with herniated medial extraconal fat with deformity and tenting of the left medial rectus muscle, likely tethered to adjacent scar tissue and partially herniated into the defect. Moderate polypoid mucosal disease within the alveolar recess of the right maxillary sinus and air-fluid level in the left maxillary sinus, the latter which can be correlated clinically for the possibility of acute sinusitis. Multilevel cervical spondylosis on the background of congenital spinal canal narrowing with apparent high-grade spinal canal stenosis at C5-C6 and C3-C4. Multilevel high-grade neural foraminal stenosis. If there is referrable myelopathy/radiculopathy, further evaluation of these findings with dedicated cervical spine MRI may be performed as clinically warranted. Assessment and Plan (1) Cellulitis: Status: Acute Plan This is a 57-year-old male with pertinent history of CAD status post stent, essential hypertension, mixed hyperlipidemia who presents to the emergency department for evaluation of facial swelling and dental pain. #. Right-sided facial and gingival cellulitis. Will admit patient for IV antibiotics as he failed p.o. outpatient antibiotics. Developing abscess noted on imaging. No palpable fluctuation or drainable abscess. Closely monitor. #. CAD status post stent / essential hypertension / mixed hyperlipidemia: Continue home p.o. medications Med rec pending DVT prophylaxis: Lovenox Full code Cardiac diet Admit as inpatient and will require two night minimum hospital stay for IV antibiotics Time Spent With Patient Time: Total time managing care of this patient today ____ minutes. Quality Stroke Does the patient have a stroke diagnosis?: No VTE Prior VTE?: No VTE Risk Level:: Medical - moderate - high VTE Device Contraindication: Treatment Not Indicated VTE Drug Contraindication: N/A - Med Ordered
[2023-02-27] MEDS: Acetaminophen 325 MG TABLET 650 MG PO (23:26)
[2023-02-27] MEDS: Ampicillin Sodium/Sulbactam Na 3 GM in 0.9 % Sodium Chloride 100 ML IV (23:27)
[2023-02-27] MEDS: Enoxaparin Sodium 40 MG/0.4 ML SYRINGE SUBCUT (23:27)
[2023-02-27] MEDS: dexAMETHasone sod phosphate 10 MG/ML VIAL IVPUSH (23:28)
[2023-02-27] MEDS: 0.9 % Sodium Chloride 1,000 ML 999 ML IV (23:35)
[2023-02-28] VITALS: BP 162/78; PULSE 69; RESP 16; TEMP 35.6; O2SAT 95
[2023-02-28] MEDS: Melatonin 3 MG TABLET 6 MG PO (00:31)
[2023-02-28] MEDS: Ampicillin Sodium/Sulbactam Na 3 GM in 0.9 % Sodium Chloride 100 ML IV ×4 (03:42→22:55)
[2023-02-28 04:00] VITALS: BP 137/75; PULSE 61; RESP 16; TEMP 36; O2SAT 94
[2023-02-28 05:56] LABS: MANUAL DIFF FLAG NO
[2023-02-28 05:59] LABS: Basophils Percent Auto 0.2 % (0-2); Eosinophils Percent Auto 0.2 % (0-4); Hemoglobin 13.9 g/dl (14.0-18.0); Imm Gran Abs Auto 0.04 X10*3/uL (0.00-0.03); Imm Gran Pct Auto 0.4 % (0.0-0.4); Lymphocytes Percent Auto 9.8 % (20-40); Mean Corpuscular HGB Conc 33.9 g/dl (31.0-36.0); Mean Corpuscular Hemoglobin 31.6 pg (27.0-33.0); Mean Corpuscular Volume 93.2 fL (80.0-98.0); Mean Platelet Volume 9.3 fL (9.4-12.4); Monocytes Absolute Auto 0.1 X10*3/uL (0.1-1.2); Monocytes Percent Auto 0.8 % (2-11); Neutrophils Absolute Auto 8.6 x10*3/uL (2.0-8.3); Neutrophils Percent Auto 88.6 % (45-73); Platelet Count 276 X10*3/uL (160-400); Red Cell Distribution Width 13.6 % (11.0-16.0); White Blood Count 9.7 X10*3/uL (4.8-10.8)
[2023-02-28 06:12] LABS: Anion Gap 13 (12-20); Blood Urea Nitrogen 12 mg/dL (9-16); Calcium 9.5 mg/dL (8.4-10.2); Carbon Dioxide 25 mmol/L (22-29); Chloride 104 mmol/L (96-108); Creatinine Clr Calc Pharmacy 137.8; Estimated Glomerular Filt Rate > 60; Glucose Random 160 mg/dL (60-115); Potassium 4.1 mmol/L (3.3-5.1); Sodium 138 mmol/L (135-145)
[2023-02-28 07:38] VITALS: BP 135/75; PULSE 66; RESP 20; TEMP 36.6; O2SAT 92
--- NOTE | 2023-02-28 09:11 | MHC.CM.PN ---
Addendum entered by Brenda Xie RN 02/28/23 09:26: PCP IS DR ИРИНА DARBY [phone] UPDATE SENT IN QUICK TASK Original Note: PATIENT LIVES WITH /HCP (COPY REQUESTED) HIS GRAND DAUGHTER, NEELAM, IS PRIMARY HCP (SHE IS AN RN) AND A COPY IS ON FILE AND [facility]. THIS SOFTWARE CONFIGURATION ENGINEER CALLING [phone] TO VERIFY PCP AND OBTAIN A COPY OF HCP. WILL UPDATE THIS NOTE WITH PROGRESS TOWARDS. PATIENT HAS A CANE FOR WHEN NEEDED. NO OTHER DME OR SERVICES. HE HOPES OT DC HOME - SELF CARE CAR IS [facility] [place] [facility]. PATIENT IS 30 % [facility] AND EXPECTING AN INCREASE IN THAT PERCENTAGE CASE MANAGEMENT FOLLOWING FOR DC NEEDS
[2023-02-28] MEDS: 0.9 % Sodium Chloride Flush 3 ML SYRINGE IVFLUSH ×2 (09:58→16:26)
[2023-02-28] MEDS: Acetaminophen 325 MG TABLET 650 MG PO ×2 (10:20→22:54)
--- NOTE | 2023-02-28 11:05 | PHA.MEDREC ---
Pharmacy Consult ? Medication Reconciliation Pharmacy has completed the medication reconciliation. Patient unsure of medications. Patient stated he takes a statin and metoprolol. [facility] to [facility] for [facility]. Add all medication prescribed by a [facility] provider. Non-VA medications were out date which included atorvastatin and metoprolol. Since patient mention those I left on medication. Spoke with patient's who told me to call the [facility] because she was unsure. Priscila Bowen, PharmD
[2023-02-28] MEDS: Celecoxib 100 MG CAPSULE PO (13:27)
[2023-02-28] MEDS: Metoprolol Succinate ER 25 MG TAB.ER.24H PO (13:27)
[2023-02-28] MEDS: Atorvastatin Calcium 80 MG TABLET PO (13:27)
[2023-02-28] MEDS: oxyCODONE HCl Immed Release 5 MG TABLET 10 MG PO ×2 (13:27→22:54)
--- NOTE | 2023-02-28 14:47 | P.PNIM_ITS ---
Subjective Subjective Date of Service: 02/28/23 Interval History: Notes interval improvement since admission. Still with pressure under right eye Review of Systems Denies chest pain Denies shortness of breath Denies nausea vomiting diarrhea Denies fever chills Physical Exam Vital Signs: Vital Signs: Last Vital Signs Temp 97.8 F 02/28/23 07:38 Pulse 66 02/28/23 07:38 Resp 20 02/28/23 07:38 BP 135/75 02/28/23 07:38 Pulse Ox 92 02/28/23 07:38 O2 Del Method Room Air 02/28/23 07:38 BMI result Body Mass Index 35.3 Const: Other: Awake alert no acute distress HEENT: Other: Mild swelling right side of nose under I Resp: Other: Clear to auscultation bilaterally no rales rhonchi or wheezes Cardio: Other: No S4; positive S1-S2; no S3 murmurs rubs or gallops GI: Other: Soft nontender nondistended normoactive bowel sounds Extrem: Other: No edema bilaterally Objective Data Active Medications Acetaminophen (Acetaminophen 325 Mg Tablet) 650 mg PO Q6H PRN PRN Reason: Pain, Mild (Pain Scale 1-3) Last Admin: 02/28/23 10:20 Dose: 650 mg Documented By: BHARATH Albuterol Sulfate (Albuterol Sulfate 90 Mcg 8 Gm Inhaler) 2 puff INHALE RQ4H PRN PRN Reason: Wheezing Atorvastatin Calcium (Atorvastatin Calcium 80 Mg Tablet) 80 mg PO DAILY [facility] Last Admin: 02/28/23 13:27 Dose: 80 mg Documented By: MIESHA Celecoxib (Celecoxib 100 Mg Capsule) 100 mg PO DAILY [facility] Last Admin: 02/28/23 13:27 Dose: 100 mg Documented By: MIESHA Enoxaparin Sodium (Enoxaparin Sodium 40 Mg/0.4 Ml Syringe) 40 mg SUBCUT Q24H [facility] Last Admin: 02/27/23 23:27 Dose: 40 mg Documented By: MADAI Fenofibrate (Fenofibrate 54 Mg Tablet) 54 mg PO DAILY [facility] Fluticasone/Vilanterol (Fluticasone/Vilanterol 100/25 Blst.W.Dev) 1 puff INHALE DAILY [facility] Ampicillin Sodium/Sulbactam (Sodium 3 gm/ Sodium Chloride) 100 mls @ 200 mls/hr IV Q6H [facility] Last Infusion: 02/28/23 10:43 Dose: 0 mls/hr Documented By: BHARATH Melatonin (Melatonin 3 Mg Tablet) 6 mg PO BEDTIME PRN PRN Reason: Insomnia Last Admin: 02/28/23 00:31 Dose: 6 mg Documented By: CAYETANO Metoprolol Succinate (Metoprolol Succinate Er 25 Mg Tab.Er.24h) 25 mg PO DAILY [facility]; Protocol Last Admin: 02/28/23 13:27 Dose: 25 mg Documented By: MIESHA Morphine Sulfate (Morphine Sulfate 2 Mg/Ml Cartridge) 2 mg IVPUSH Q6H PRN; Protocol PRN Reason: Pain, Moderate(Pain Scale 4-6) Ondansetron HCl (Ondansetron Hcl 4 Mg/2 Ml Vial) 4 mg IVPUSH Q8H PRN PRN Reason: Nausea and Vomiting Oxycodone HCl (Oxycodone Hcl Immed Release 5 Mg Tablet) 10 mg PO Q4H PRN PRN Reason: Pain, Moderate(Pain Scale 4-6) Last Admin: 02/28/23 13:27 Dose: 10 mg Documented By: MIESHA Pharmacy Consult (Consult Rx Perform Med Rec) 1 each MISCELLANE ONCE PRN PRN Reason: Consult order Sodium Chloride (0.9 % Sodium Chloride Flush 3 Ml Syringe) 3 ml IVFLUSH QSHIFT [facility] Last Admin: 02/28/23 09:58 Dose: 3 ml Documented By: BHARATH Tiotropium Beatty (Tiotropium Beatty 2.5 Mcg Inhaler) 2 puff INHALE RDAILY [facility] Labs 02/28/23 05:50 02/28/23 05:50 Labs: Laboratory Results - last 24 hr 02/27/23 02/27/23 02/27/23 20:21 20:21 20:21 MCV 92.8 MCH 31.5 MCHC 33.9 RDW 14.0 Plt Count 266 MPV 8.9 L Immature Gran % (Auto) 0.2 Neut % (Auto) 69.1 Lymph % (Auto) 22.7 Sanders % (Auto) 6.5 Eos % (Auto) 1.0 Baso % (Auto) 0.5 Lymph # (Auto) 2.3 Sanders # (Auto) 0.7 Eos # (Auto) 0.1 Baso # (Auto) 0.1 Abs Immat Gran (auto) 0.02 Absolute Neuts (auto) 6.9 Absolute Nucleated RBC 0.000 Nucleated RBC % (auto) 0.0 Anion Gap 12 Estim Creat Clear Calc 134.0 Estimated GFR > 60 Random Glucose 108 Lactic Acid 0.9 Calcium 8.9 Total Bilirubin 0.4 AST 17 ALT 13 Alkaline Phosphatase 82 Total Protein 7.0 Albumin 4.1 02/28/23 02/28/23 05:50 05:50 MCV 93.2 MCH 31.6 MCHC 33.9 RDW 13.6 Plt Count 276 MPV 9.3 L Immature Gran % (Auto) 0.4 Neut % (Auto) 88.6 H Lymph % (Auto) 9.8 L Sanders % (Auto) 0.8 L Eos % (Auto) 0.2 Baso % (Auto) 0.2 Lymph # (Auto) 1.0 L Sanders # (Auto) 0.1 Eos # (Auto) 0.0 Baso # (Auto) 0.0 Abs Immat Gran (auto) 0.04 H Absolute Neuts (auto) 8.6 H Absolute Nucleated RBC 0.000 Nucleated RBC % (auto) 0.0 Anion Gap 13 Estim Creat Clear Calc 137.8 Estimated GFR > 60 Random Glucose 160 H Lactic Acid Calcium 9.5 D Total Bilirubin AST ALT Alkaline Phosphatase Total Protein Albumin Assessment and Plan (1) Dental abscess: Status: Inactive (2) Essential hypertension: Status: Acute (3) Coronary artery disease: Status: Acute Plan This is a 57-year-old male with pertinent history of CAD status post stent, essential hypertension, mixed hyperlipidemia who presents to the emergency department for evaluation of facial swelling and dental pain. 1.Odontogenic abcess -Unasyn(2) -pain management with oxycodone -follow-up cultures 2. CAD -no issues this admission -continue outpatient therapies 3. Hypertension -acceptable control on current therapies -adjust as indicated Lovenox Full code Were acquired ongoing hospitalization for IV antibiot to treat odontogenic abcess #. CAD status post stent / essential hypertension / mixed hyperlipidemia: Continue home p.o. medications Med rec pending DVT prophylaxis: Lovenox Full code Cardiac diet Admit as inpatient and will require two night minimum hospital stay for IV antibiotics Time Spent With Patient Time: Total time managing care of this patient today ____ minutes. Quality Stroke Does the patient have a stroke diagnosis?: No VTE Prior VTE?: No VTE Risk Level:: Medical - moderate - high VTE Device Contraindication: Treatment Not Indicated VTE Drug Contraindication: N/A - Med Ordered
[2023-02-28 15:33] VITALS: BP 140/68; PULSE 66; RESP 16; TEMP 36.5; O2SAT 93
[2023-02-28] MEDS: Fluticasone/Vilanterol 100/25 BLST.W.DEV 1 PUFF INHALE (18:44)
[2023-02-28 19:23] VITALS: BP 139/66; PULSE 72; RESP 17; TEMP 36.3; O2SAT 95
[2023-02-28] MEDS: Enoxaparin Sodium 40 MG/0.4 ML SYRINGE SUBCUT (22:52)
[2023-02-28] MEDS: Calcium Carbonate 750 MG TAB.CHEW PO (22:54)
[2023-03-01] MEDS: Melatonin 3 MG TABLET 6 MG PO ×2 (00:35→23:46)
[2023-03-01 03:32] VITALS: BP 130/62; PULSE 65; RESP 18; TEMP 36.6; O2SAT 97
[2023-03-01] MEDS: Ampicillin Sodium/Sulbactam Na 3 GM in 0.9 % Sodium Chloride 100 ML IV ×4 (04:27→22:08)
[2023-03-01] MEDS: Fluticasone/Vilanterol 100/25 BLST.W.DEV 1 PUFF INHALE (07:26)
[2023-03-01 07:28] VITALS: PULSE 59; RESP 18; O2SAT 95
[2023-03-01 07:48] VITALS: BP 122/66; PULSE 58; RESP 18; TEMP 36.4; O2SAT 96
[2023-03-01] MEDS: Metoprolol Succinate ER 25 MG TAB.ER.24H PO (08:21)
[2023-03-01] MEDS: Celecoxib 100 MG CAPSULE PO (08:22)
[2023-03-01] MEDS: Atorvastatin Calcium 80 MG TABLET PO (08:22)
[2023-03-01] MEDS: Fenofibrate 54 MG TABLET PO (08:22)
[2023-03-01] MEDS: 0.9 % Sodium Chloride Flush 3 ML SYRINGE IVFLUSH ×3 (08:23→20:30)
--- NOTE | 2023-03-01 10:20 | P.PNIM_ITS ---
Subjective Subjective Date of Service: 03/01/23 Interval History: Continues to improve. Less pressure and swelling per patient Review of Systems Denies chest pain Denies shortness of breath Denies nausea vomiting diarrhea Denies fever chills Physical Exam Vital Signs: Vital Signs: Last Vital Signs Temp 97.6 F 03/01/23 07:48 Pulse 58 03/01/23 07:48 Resp 18 03/01/23 07:48 BP 122/66 03/01/23 07:48 Pulse Ox 96 03/01/23 07:48 O2 Del Method Room Air 03/01/23 07:48 BMI result Body Mass Index 35.3 Const: Other: Awake alert no acute distress HEENT: Other: Mild swelling right side of nose under I Resp: Other: Clear to auscultation bilaterally no rales rhonchi or wheezes Cardio: Other: No S4; positive S1-S2; no S3 murmurs rubs or gallops GI: Other: Soft nontender nondistended normoactive bowel sounds Extrem: Other: No edema bilaterally Objective Data Active Medications Acetaminophen (Acetaminophen 325 Mg Tablet) 650 mg PO Q6H PRN PRN Reason: Pain, Mild (Pain Scale 1-3) Last Admin: 02/28/23 22:54 Dose: 650 mg Documented By: TALIA Albuterol Sulfate (Albuterol Sulfate 90 Mcg 8 Gm Inhaler) 2 puff INHALE RQ4H PRN PRN Reason: Wheezing Atorvastatin Calcium (Atorvastatin Calcium 80 Mg Tablet) 80 mg PO DAILY [facility] Last Admin: 03/01/23 08:22 Dose: 80 mg Documented By: LEELA Celecoxib (Celecoxib 100 Mg Capsule) 100 mg PO DAILY [facility] Last Admin: 03/01/23 08:22 Dose: 100 mg Documented By: LEELA Enoxaparin Sodium (Enoxaparin Sodium 40 Mg/0.4 Ml Syringe) 40 mg SUBCUT Q24H [facility] Last Admin: 02/28/23 22:52 Dose: 40 mg Documented By: TALIA Fenofibrate (Fenofibrate 54 Mg Tablet) 54 mg PO DAILY [facility] Last Admin: 03/01/23 08:22 Dose: 54 mg Documented By: LEELA Fluticasone/Vilanterol (Fluticasone/Vilanterol 100/25 Blst.W.Dev) 1 puff INHALE DAILY [facility] Last Admin: 03/01/23 07:26 Dose: 1 puff Documented By: TIGRE Ampicillin Sodium/Sulbactam (Sodium 3 gm/ Sodium Chloride) 100 mls @ 200 mls/hr IV Q6H [facility] Last Infusion: 03/01/23 05:02 Dose: 0 mls/hr Documented By: TALIA Melatonin (Melatonin 3 Mg Tablet) 6 mg PO BEDTIME PRN PRN Reason: Insomnia Last Admin: 03/01/23 00:35 Dose: 6 mg Documented By: JO-ANN Metoprolol Succinate (Metoprolol Succinate Er 25 Mg Tab.Er.24h) 25 mg PO DAILY [facility]; Protocol Last Admin: 03/01/23 08:21 Dose: 25 mg Documented By: LEELA Morphine Sulfate (Morphine Sulfate 2 Mg/Ml Cartridge) 2 mg IVPUSH Q6H PRN; Protocol PRN Reason: Pain, Moderate(Pain Scale 4-6) Ondansetron HCl (Ondansetron Hcl 4 Mg/2 Ml Vial) 4 mg IVPUSH Q8H PRN PRN Reason: Nausea and Vomiting Oxycodone HCl (Oxycodone Hcl Immed Release 5 Mg Tablet) 10 mg PO Q4H PRN PRN Reason: Pain, Moderate(Pain Scale 4-6) Last Admin: 02/28/23 22:54 Dose: 10 mg Documented By: TALIA Pharmacy Consult (Consult Rx Perform Med Rec) 1 each MISCELLANE ONCE PRN PRN Reason: Consult order Sodium Chloride (0.9 % Sodium Chloride Flush 3 Ml Syringe) 3 ml IVFLUSH QSHIFT [facility] Last Admin: 03/01/23 08:23 Dose: 3 ml Documented By: LEELA Tiotropium Carson (Tiotropium Carson 2.5 Mcg Inhaler) 2 puff INHALE RDAILY [facility] Last Admin: 03/01/23 07:26 Dose: 2 puff Documented By: TIGRE Labs 02/28/23 05:50 02/28/23 05:50 Microbiology Microbiology Results: Microbiology 02/27/23 20:20 Blood Culture - Preliminary Blood - Venous No growth after 24 hours. 02/27/23 20:20 Blood Culture - Preliminary Blood - Venous No growth after 24 hours. Assessment and Plan (1) Cellulitis: Status: Acute (2) Dental caries: Status: Acute (3) Essential hypertension: Status: Acute Plan This is a 57-year-old male with pertinent history of CAD status post stent, essential hypertension, mixed hyperlipidemia who presents to the emergency department for evaluation of facial swelling and dental pain. 1.Odontogenic abcess -Unasyn(3) -pain management with oxycodone -cultures neg x 24hrs. 2. CAD -no issues this admission -continue outpatient therapies 3. Hypertension -acceptable control on current therapies -adjust as indicated Lovenox Full code Were acquired ongoing hospitalization for IV antibiot to treat odontogenic abcess #. CAD status post stent / essential hypertension / mixed hyperlipidemia: Continue home p.o. medications Med rec pending DVT prophylaxis: Lovenox Full code Cardiac diet Admit as inpatient and will require two night minimum hospital stay for IV antibiotics Time Spent With Patient Time: Total time managing care of this patient today ____ minutes. Quality Stroke Does the patient have a stroke diagnosis?: No VTE Prior VTE?: No VTE Risk Level:: Medical - moderate - high VTE Device Contraindication: Treatment Not Indicated VTE Drug Contraindication: N/A - Med Ordered
[2023-03-01 15:37] VITALS: BP 135/63; PULSE 71; RESP 18; TEMP 36.3; O2SAT 93
[2023-03-01 20:00] VITALS: BP 135/63; PULSE 71; RESP 18; TEMP 36.3; O2SAT 93
[2023-03-01] MEDS: Enoxaparin Sodium 40 MG/0.4 ML SYRINGE SUBCUT (22:06)
[2023-03-01 23:40] VITALS: BP 133/63; PULSE 73; RESP 18; TEMP 36.4; O2SAT 98
[2023-03-01] MEDS: oxyCODONE HCl Immed Release 5 MG TABLET 10 MG PO (23:47)
[2023-03-02] MEDS: Ampicillin Sodium/Sulbactam Na 3 GM in 0.9 % Sodium Chloride 100 ML IV ×2 (05:28→10:02)
[2023-03-02 07:17] VITALS: BP 143/87; PULSE 59; RESP 18; TEMP 36.2; O2SAT 96
[2023-03-02] MEDS: Metoprolol Succinate ER 25 MG TAB.ER.24H PO (07:44)
[2023-03-02] MEDS: Fenofibrate 54 MG TABLET PO (07:44)
[2023-03-02] MEDS: Atorvastatin Calcium 80 MG TABLET PO (07:44)
[2023-03-02] MEDS: Celecoxib 100 MG CAPSULE PO (07:44)
[2023-03-02] MEDS: 0.9 % Sodium Chloride Flush 3 ML SYRINGE IVFLUSH (07:46)
[2023-03-02] MEDS: Fluticasone/Vilanterol 100/25 BLST.W.DEV 1 PUFF INHALE (08:02)
[2023-03-02 08:04] VITALS: PULSE 76; RESP 18; O2SAT 95
--- NOTE | 2023-03-02 09:28 | PM.DS ---
DS: Providers Provider Date of Service: 03/02/23 Date of admission: 02/27/23 22:30 Date of discharge: 03/02/23 Primary care physician: Mihir Mccrary MD DS: Diagnosis Discharge Diagnosis (1) Cellulitis: Status: Acute (2) Dental caries: Status: Acute (3) Essential hypertension: Status: Acute DS: Summary Hospital Course Hospital Course: 7-year-old male with pertinent history of CAD status post stent, essential hypertension, mixed hyperlipidemia who presents to the emergency department for evaluation of facial swelling and dental pain.? Patient states that about 4 days prior to presentation, patient had a tooth which broke and hit his gums.? Since then, he has been having pain, redness and swelling.? Patient was prescribed p.o. antibiotics at the [facility] which he was compliant with.? Patient states the pain, redness and swelling worsened over the last 3-4 days.? On the day of presentation, he also had associated right-sided facial swelling.? He does have a history of dental caries but has not been able to see a dentist due to family emergency.?Imaging; cellulitic changes within right facial soft tissues.? Also concern for developing odontogenic abscess Hospital Course Patient admitted to general medical floor where he was started on vancomycin and Zosyn. Over the next 72 hours patient improved dramatically with only pain being in his incisor when he eats. His remained afebrile without white count. At this point in time he is medically acceptable for discharge home on a course of Augmentin. He will follow-up with his dentist for extraction Time Spent with Patient Time attestation: Total time managing care of this patient today ____ minutes. Discharge coordination time: Greater than 30 minutes Quality: Safe Use of Opioids Does Pt have an Active Cancer Diagnosis on the Problem List?: No Quality: Stroke Does the patient have a stroke diagnosis?: No Physical Exam Vital Signs: Vital Signs: Last Vital Signs Temp 97.2 F 03/02/23 07:17 Pulse 76 03/02/23 08:04 Resp 18 03/02/23 08:04 BP 143/87 H 03/02/23 07:17 Pulse Ox 96 03/02/23 07:17 O2 Del Method Room Air 03/02/23 07:17 BMI result Body Mass Index 35.3 Const: Other: Awake alert no acute distress HEENT: Other: No facial swelling or tenderness Resp: Other: Clear to auscultation bilaterally no rales rhonchi or wheezes Cardio: Other: No S4; positive S1-S2; no S3 murmurs rubs or gallops GI: Other: Soft nontender nondistended normoactive bowel sounds Extrem: Other: No edema bilaterally DS: Data Data Completed and Pending Labs on day of discharge: Preliminary micro results at discharge 02/27/23 20:20 Blood Culture - Preliminary Blood - Venous No growth after 48 hours. 02/27/23 20:20 Blood Culture - Preliminary Blood - Venous No growth after 48 hours. Discharge Plan Discharge Anticipated Discharge Date/Time: 03/02/23 09:22 Patient Disposition: Home, Self-Care Discharge Diagnosis: Cellulitis Referrals: Mihir Mccrary MD [Primary Care Provider] - 1 Week Discharge Medications: New oxycodone 5 mg Tablet 10 mg PO Q4H PRN (Reason: Pain, Moderate(Pain Scale 4-6)) Qty: 15 0RF Rx Instructions: Partial Fill upon patient request. amoxicillin-pot clavulanate 875-125 mg tablet 1 tab PO BID Qty: 20 0RF Continued fluticasone propion-salmeterol [Wixela Inhub] 250-50 mcg/dose Blister With Device 1 inh INHALATION BID atorvastatin 80 mg Tablet 80 mg PO DAILY acetaminophen 500 mg Tablet 1,000 mg PO Q8H PRN (Reason: Pain) albuterol sulfate 90 mcg/actuation Hfa Aerosol Inhaler 2 puff INHALATION Q4H PRN (Reason: Wheezing) celecoxib 100 mg Capsule 100 mg PO DAILY fenofibrate 54 mg Tablet 54 mg PO DAILY Spiriva Respimat 2.5 mcg/actuation Mist 2 puff INHALATION DAILY metoprolol succinate 25 mg Capsule,Sprinkle,Er 24hr 25 mg PO DAILY Discontinued amoxicillin 500 mg Capsule 500 mg PO TID Rx Instructions: FOR DENTAL CARIES, X 7 DAYS Discharge Orders: Discharge Order (Routine); Ordered 03/02/23 Ordered By: Michael Rivas Diet: Advance to usual diet Activity on Discharge: As tolerated Stand Alone Forms: Patient Portal Discharge page Care Plan Goals: Complete course of Augmentin twice daily for 10 days Health Concerns: Follow-up with dentist for your tooth extraction Plan of Treatment: Resume all pre-hospital medications Assessment: See discharge summary
--- NOTE | 2023-03-02 09:42 | MHC.CM.PN ---
PT WILL DC HOME TODAY WITH NO SERVICES PT TO ARRANGE TRANSPORT
== END 2023-03-02 11:45 | disposition home or self-care (01) | DRG 159 ==
LOC: HO.ED 23:10 → HO.EDOVER 23:19 → HO.S3 23:42
PROVIDERS: Physician Assistant; Admitting Provider Student in an Organized Health Care Education/Training Program; Emergency Provider Emergency Medicine Emergency Medical Services; PCP Internal Medicine; Visit Provider Hospitalist
DX: K12.2 Cellulitis and abscess of mouth (principal); I25.10 Atherosclerotic heart disease of native coronary artery without angina pectoris; E78.2 Mixed hyperlipidemia; J44.9 Chronic obstructive pulmonary disease, unspecified; F17.210 Nicotine dependence, cigarettes, uncomplicated; Z95.5 Presence of coronary angioplasty implant and graft; Z71.6 Tobacco abuse counseling; Z79.51 Long term (current) use of inhaled steroids; Z79.899 Other long term (current) drug therapy
CPT/HCPCS: 36415; 70491; 80048; 80053; 83605; 85025; 87040; 94640; 99285; J0295; J1100; J1650; Q9967

== ENCOUNTER 2024-05-20 10:48 | Emergency (ER) | payer OTHER, SELFPAY ==
--- NOTE | ~2024-05-20 | XR_ITS ---
EXAMINATION: XR CHEST CLINICAL INFORMATION: Shortness of breath COMPARISON: None available. TECHNIQUE: Frontal view of the chest was obtained. FINDINGS: Slight bibasilar atelectasis. No pneumothorax. Trachea is midline. Sternotomy wires. Left chest wall single-lead pacer terminating in the right ventricle. Cardiac mediastinal silhouette is not enlarged. No large pleural effusion. Osseous structures are intact. Soft tissues are unremarkable. XR/XR chest 1V IMPRESSION: Slight bibasilar atelectasis. Electronically signed by: Arpan Pfeiffer MD 05/20/2024 12:05 PM EDT
[2024-05-20 10:59] VITALS: BP 158/88; PULSE 93; RESP 20; TEMP 36.5; O2SAT 97; BMI 32.8
--- NOTE | 2024-05-20 11:03 | ECG_ITS ---
Test Reason : dyspnea Blood Pressure : / mmHG Vent. Rate : 071 BPM Atrial Rate : 071 BPM P-R Int : 142 ms QRS Dur : 096 ms QT Int : 380 ms P-R-T Axes : 031 024 147 degrees QTc Int : 412 ms Normal sinus rhythm Cannot rule out Inferior infarct , age undetermined Nonspecific T wave abnormality Abnormal ECG No previous ECGs available Referred By: Mohan Palacios Electronically Signed By:RHIANNON PEARSON
--- NOTE | 2024-05-20 11:05 | ED.GENADULT ---
HPI - General Adult General Chief complaint: Dyspnea Stated complaint: SOB Time Seen by Provider: 05/20/24 17:12 Source: patient Mode of arrival: ambulatory History of Present Illness ED Provider: Mohan Palacios HPI narrative: 58 yold male with pmh of COPD and mild CHF presents to the ED for coughing with white phleghm, wheezing, and SOB for the past 3 days. patient denies any chest pain, calf pain, coughing up blood, pleurisy, or any recent trauma. Patient main complaint is the cough Related Data Home Medications ?Medication ?Instructions ?Recorded ?Confirmed acetaminophen 500 mg tablet 1,000 mg PO Q8H PRN Pain 02/28/23 02/28/23 albuterol sulfate 90 mcg/actuation 2 puff inhalation Q4H PRN Wheezing 02/28/23 02/28/23 aerosol inhaler atorvastatin 80 mg tablet 80 mg PO DAILY 02/28/23 02/28/23 celecoxib 100 mg capsule 100 mg PO DAILY 02/28/23 02/28/23 fenofibrate 54 mg tablet 54 mg PO DAILY 02/28/23 02/28/23 fluticasone 250 mcg-salmeterol 50 1 inh inhalation BID 02/28/23 02/28/23 mcg/dose blistr powdr for inhalation (Wixela Inhub) metoprolol succinate 25 mg capsule 25 mg PO DAILY 02/28/23 02/28/23 sprinkle, ext. release 24 hr tiotropium bromide 2.5 2 puff inhalation DAILY 02/28/23 02/28/23 mcg/actuation mist for inhalation (Spiriva Respimat) Previous Rx's ?Medication ?Instructions ?Recorded amoxicillin 875 mg-potassium 1 tab PO BID #20 tabs 03/02/23 clavulanate 125 mg tablet oxycodone 5 mg tablet 10 mg (2 x 5 mg) PO Q4H PRN Pain, 03/02/23 Moderate(Pain Scale 4-6) #15 tabs benzonatate 200 mg capsule 200 mg PO TID 5 days #15 caps 05/20/24 oxycodone 5 mg capsule 5 mg PO Q8H PRN cough 3 days #9 05/20/24 caps prednisone 20 mg tablet 40 mg (2 x 20 mg) PO DAILY 5 days 05/20/24 #10 tabs Allergies Allergy/AdvReac Type Severity Reaction Status Date / Time No Known Allergies Allergy Verified 05/20/24 11:03 Review of Systems Review of Systems: cough, white phleghm wheezing, and SoB Yes all other systems are reviewed and are negative [facility] Past Medical History Medical History Coronary artery disease Essential hypertension Mixed hyperlipidemia Social History Social History Household Members: Spouse Housing: House Do you presently have visiting nurse or other home services: No Alcohol intake: never Patient Tobacco Use Status: Current everyday Tobacco user Tobacco use type: Cigarette Cigarettes Per Day: 2 Advance Directives: No Do you have a plan to hurt others: No Plan service: Yes Physical Exam ED Vital Signs: Vital Signs - 24 hr 05/20/24 10:59 05/20/24 16:50 05/20/24 18:06 Temperature 97.7 F 98 F 98.5 F Pulse Rate 93 84 78 Respiratory Rate 20 16 16 Blood Pressure 158/88 H 154/67 H Pulse Oximetry 97 95 Oxygen Delivery Method Room Air Room Air Room Air BMI result Body Mass Index 32.8 Const General: cooperative, healthy appearing, comfortable, no acute distress, well developed, alert, awake and Physically active Orientation/consciousness: patient oriented x3 HENMT Head: Yes normal to inspection, Yes No palpable skull fracture present and Yes normocephalic Throat: Yes posterior oropharynx normal, Yes tonsils normal and Yes uvula midline Eyes General: appearance normal, both eyes and all related structures Neck Neck: Yes normal visual inspection, Yes full ROM, Yes no lymphadenopathy, Yes no meningeal signs, Yes trachea midline, Yes supple and No anterior neck swelling Chest Chest palpation & inspection: normal inspection of the chest and normal palpation of entire chest wall Resp Effort & Inspection: normal respiratory effort and able to speak in complete sentences Auscultation: wheezes expiratory wheezes (diffuse) Cardio Jugular venous distension: no JVD Heart sounds: S1 normal heart sound present and S2 normal heart sound present GI Inspection: Yes normal to inspection Palpation (GI): Soft to palpation, not firm, nontender, no guarding and not rigid General: Yes no CVA tenderness Back/Spine/Pelvis Back: no CVA tenderness and No back tenderness Skin General skin exam: no rashes or lesions noted, elasticity normal and turgor normal Neuro General: patient oriented x3, gait normal, tone normal, moves all extremities, Normal light touch and pain sensation, no meningeal signs, no focal motor deficits, CN's II-XI intact bilaterally and normal sensation to monofilament Extrem Other: bilateral lower extremity negative for swelling, pitting edema, or calf tenderness. General: Yes normal to inspection, Yes full ROM and Yes capillary refill normal Psych Appearance: grossly normal, well kempt and not disheveled Course Course Course Narrative: RME: DOne by KAMILLE Palacios: 58-year-old male history of COPD and CHF presents to ED for shortness of breath with productive cough with white/serrano phlegm. Patient denies any leg swelling. Patient denies any chest pain or dizziness. Lungs positive for wheezing. Lower extremity negative for swelling or pitting edema. X-ray labs ordered. Medications Administered Discontinued Medications Generic Name Dose Route Start Last Admin Trade Name Freq PRN Reason Stop Dose Admin Albuterol/Ipratropium 3 ml 05/20/24 17:07 05/20/24 17:18 Albuterol/Iprat 2.5/0.5mg 3 Ml Ampul.Neb INHALE 05/20/24 17:08 3 ml ONCE ONE Administration Prednisone 60 mg 05/20/24 16:52 05/20/24 18:03 Prednisone 20 Mg Tablet PO 05/20/24 16:53 60 mg ONCE ONE Administration Medical Decision Making Medical Decision Making [facility] Narrative: 58 yold male with pmh of COPD/mild CHF presents to ED for continuous cough with white phlegm. Patient states some wheezing. Patient denies any leg swelling, calf pain, coughing up blood, recent trauma, pleurisy, chest pain, or recent long travel. Physical exam positive expiratory wheezing. Patient continuously coughing. EKG negative STEMI. Two troponins negative. BNP only 175. Negative JVD. No pitting edema swelling of lower extremities. Not suspecting PE. X-ray negative for signs of fluid overload. Not suspecting CHF exacerbation. Patient feels relief after 2 DuoNebs and oral steroids. Patient already has albuterol inhaler at home will be discharged with steroids, cough medication. Patient informed she will benefit from nebulizer informed to talk with primary care provider to prescribed nebulizer. Not suspecting myocardial infarction or myocarditis. X-ray negative pneumonia Differential Diagnosis Differential Diagnoses: The differential diagnosis associated with the presentation includes (Pneumonia, Covid, COPD, Asthma, ChF) Admission/Observation Consideration of admission/observation: Escalation of care including admission/observation considered Lab Data MDM Lab Attestation statement: I reviewed the patient's lab results. 05/20/24 11:29 05/20/24 11:29 Labs: Lab Results 05/20/24 05/20/24 Range/Units 11:29 13:39 WBC 10.6 (4.8-10.8) X10*3/uL RBC 4.35 L (4.60-5.80) X10*6/uL Hgb 13.7 L (14.0-18.0) g/dl Hct 39.6 L (42.0-52.0) % MCV 91.0 (80.0-98.0) fL MCH 31.5 (27.0-33.0) pg MCHC 34.6 (31.0-36.0) g/dl RDW 13.2 (11.0-16.0) % Plt Count 279 (160-400) X10*3/uL MPV 9.1 L (9.4-12.4) fL Immature Gran % (Auto) 0.3 (0.0-0.4) % Neut % (Auto) 73.9 H (45-73) % Lymph % (Auto) 18.1 L (20-40) % [place] % (Auto) 5.8 (2-11) % Eos % (Auto) 1.4 (0-4) % Baso % (Auto) 0.5 (0-2) % Lymph # (Auto) 1.9 (1.2-4.9) X10*3/uL [place] # (Auto) 0.6 (0.1-1.2) X10*3/uL Eos # (Auto) 0.2 (0.0-0.4) X10*3/uL Baso # (Auto) 0.1 (0.0-0.2) X10*3/uL Abs Immat Gran (auto) 0.03 (0.00-0.03) X10*3/uL Absolute Neuts (auto) 7.8 (2.0-8.3) x10*3/uL Absolute Nucleated RBC 0.000 (0.0-0.012) X10*3/uL Nucleated RBC % (auto) 0.0 (0.0-0.2) /100WBC PT 11.1 (11.1-13.3) SEC INR 0.9 (0.9-1.1) APTT 28.2 (26.0-36.8) SEC Sodium 141 (135-145) mmol/L Potassium 3.6 (3.3-5.1) mmol/L Chloride 106 (96-108) mmol/L Carbon Dioxide 25 (22-29) mmol/L Anion Gap 14 (12-20) BUN 9 (9-16) mg/dL Creatinine 0.73 (0.5-1.4) mg/dL Estim Creat Clear Calc 125.9 Estimated GFR > 60 Random Glucose 107 (60-115) mg/dL Calcium 9.1 (8.4-10.2) mg/dL Total Bilirubin 0.4 (0.0-1.0) mg/dL AST 13 (5-37) U/L ALT 16 (0-40) U/L Alkaline Phosphatase 99 (39-117) U/L Troponin I High Sens 5.7 6.3 (<3.5-35.0) ng/L B-Natriuretic Peptide 175 H (<100) pg/mL Total Protein 7.0 (6.5-8.0) g/dL Albumin 4.0 (3.5-5.0) g/dL Influenza Type A (PCR) NEGATIVE (Negative) Influenza Type B (PCR) NEGATIVE (Negative) RSV RNA Qual (PCR) NEGATIVE (Negative) SARS-CoV-2 RNA (RT-PCR) NEGATIVE (Negative) Independent Interpretation I performed an independent interpretation of an: EKG (Negative STEMI. NOrmal sinus rhythm.) and Plain X-Ray Radiology Impression Discussion of test interpretation with radiology: I have reviewed the radiologist's reading. Independent Historian Clinical information obtained from an independent historian. History obtained from or confirmed by: Other (patient) External Record Review External record reviewed: Other (prior visits) Prescription Management I considered prescription management with: Other (Prednisone, tessalaon pearles, oxy) Chronic Conditions Patient?s care impacted by: Other (COPD) Discharge Plan Discharge Clinical Impression: COPD (chronic obstructive pulmonary disease), URI (upper respiratory infection) Patient Disposition: Home, Self-Care Instructions: Upper Respiratory Infection (ED), COPD (Chronic Obstructive Pulmonary Disease) (ED) Additional Instructions: Recommend follow up with PCP. Return To the ED immediately for any chest pain, shortness of breath on exertion, chest pain/shortness of breath on inspiration, leg swelling, calf pain, coughing up blood, weakness, dizziness, fever, chills, passing out, or any other concerning symptoms. Continue taking your albuterol inhaler. Recommend having discussions with your primary care provider for him to prescribe nebulizer which will be beneficial. You will be discharged for Tessalon Perles and oxycodone for cough. Prescriptions: New prednisone 20 mg tablet 40 mg PO DAILY 5 Days Qty: 10 0RF benzonatate 200 mg capsule 200 mg PO TID 5 Days Qty: 15 0RF oxycodone 5 mg capsule 5 mg PO Q8H PRN (Reason: cough) 3 Days Qty: 9 0RF Rx Instructions: Partial Fill upon patient request. No Action fluticasone propion-salmeterol [Wixela Inhub] 250-50 mcg/dose Blister With Device 1 inh INHALATION BID atorvastatin 80 mg Tablet 80 mg PO DAILY acetaminophen 500 mg Tablet 1,000 mg PO Q8H PRN (Reason: Pain) albuterol sulfate 90 mcg/actuation Hfa Aerosol Inhaler 2 puff INHALATION Q4H PRN (Reason: Wheezing) celecoxib 100 mg Capsule 100 mg PO DAILY fenofibrate 54 mg Tablet 54 mg PO DAILY Spiriva Respimat 2.5 mcg/actuation Mist 2 puff INHALATION DAILY metoprolol succinate 25 mg Capsule,Sprinkle,Er 24hr 25 mg PO DAILY oxycodone 5 mg Tablet 10 mg PO Q4H PRN (Reason: Pain, Moderate(Pain Scale 4-6)) Qty: 15 0RF Rx Instructions: Partial Fill upon patient request. amoxicillin-pot clavulanate 875-125 mg tablet 1 tab PO BID Qty: 20 0RF Interventions: ED Discharge Assessment Last Done: 05/20/24 18:06 Discharge Date/Time: 05/20/24 18:08 Print Language: [place] Verdean
[2024-05-20 11:39] LABS: Basophils Absolute Auto 0.1 X10*3/uL (0.0-0.2); Basophils Percent Auto 0.5 % (0-2); Eosinophils Absolute Auto 0.2 X10*3/uL (0.0-0.4); Eosinophils Percent Auto 1.4 % (0-4); Hematocrit 39.6 % (42.0-52.0); Hemoglobin 13.7 g/dl (14.0-18.0); Imm Gran Abs Auto 0.03 X10*3/uL (0.00-0.03); Imm Gran Pct Auto 0.3 % (0.0-0.4); Lymphocytes Absolute Auto 1.9 X10*3/uL (1.2-4.9); Lymphocytes Percent Auto 18.1 % (20-40); MANUAL DIFF FLAG NO; Mean Corpuscular HGB Conc 34.6 g/dl (31.0-36.0); Mean Corpuscular Hemoglobin 31.5 pg (27.0-33.0); Mean Platelet Volume 9.1 fL (9.4-12.4); Monocytes Absolute Auto 0.6 X10*3/uL (0.1-1.2); Monocytes Percent Auto 5.8 % (2-11); Neutrophils Absolute Auto 7.8 x10*3/uL (2.0-8.3); Neutrophils Percent Auto 73.9 % (45-73); Platelet Count 279 X10*3/uL (160-400); Red Blood Count 4.35 X10*6/uL (4.60-5.80); Red Cell Distribution Width 13.2 % (11.0-16.0); White Blood Count 10.6 X10*3/uL (4.8-10.8)
[2024-05-20 11:55] LABS: Alanine Aminotransferase 16 U/L (0-40); Alkaline Phosphatase 99 U/L (39-117); Anion Gap 14 (12-20); Aspartate Amino Transferase 13 U/L (5-37); Bilirubin Total 0.4 mg/dL (0.0-1.0); Blood Urea Nitrogen 9 mg/dL (9-16); Calcium 9.1 mg/dL (8.4-10.2); Carbon Dioxide 25 mmol/L (22-29); Chloride 106 mmol/L (96-108); Creatinine Clr Calc Pharmacy 125.9; Estimated Glomerular Filt Rate > 60; Glucose Random 107 mg/dL (60-115); Potassium 3.6 mmol/L (3.3-5.1); Sodium 141 mmol/L (135-145)
[2024-05-20 11:57] LABS: INTERNATIONAL NORM RATIO 0.9 (0.9-1.1); Prothrombin Time 11.1 SEC (11.1-13.3)
[2024-05-20 12:00] LABS: Partial Thromboplastin Time 28.2 SEC (26.0-36.8)
[2024-05-20 12:01] LABS: B Type Natriuretic Peptide 175 pg/mL (<100)
[2024-05-20 12:03] LABS: Troponin-I High Sensitivity 5.7 ng/L (<3.5-35.0)
[2024-05-20 12:20] LABS: Influenza A PCR NEGATIVE (Negative); Influenza B PCR NEGATIVE (Negative); Resp Syncy Virus RNA Qual PCR NEGATIVE (Negative); SARS COV2 PCR INHOUSE NEGATIVE (Negative)
[2024-05-20 14:05] LABS: Troponin-I High Sensitivity 6.3 ng/L (<3.5-35.0)
[2024-05-20 16:50] VITALS: PULSE 84; RESP 16; TEMP 36.6; O2SAT 95
[2024-05-20] MEDS: Albuterol/Iprat 2.5/0.5MG 3 ML AMPUL.NEB INHALE (17:18)
[2024-05-20] MEDS: predniSONE 20 MG TABLET 60 MG PO (18:03)
[2024-05-20 18:06] VITALS: BP 154/67; PULSE 78; RESP 16; TEMP 36.9
== END 2024-05-20 18:08 | disposition home or self-care (01) ==
PROVIDERS: Physician Assistant; Emergency Provider Internal Medicine; PCP Internal Medicine
DX: J44.9 Chronic obstructive pulmonary disease, unspecified (principal); J06.9 Acute upper respiratory infection, unspecified; R06.02 Shortness of breath; R94.31 Abnormal electrocardiogram [ECG] [EKG]; F17.210 Nicotine dependence, cigarettes, uncomplicated; Z03.818 Encounter for observation for suspected exposure to other biological agents ruled out; Z79.899 Other long term (current) drug therapy
CPT/HCPCS: 0241U; 36415; 71045; 80053; 83880; 84484; 85025; 85610; 85730; 93005; 99283; 99284

== ENCOUNTER 2024-09-04 18:31 | Emergency (ER) | payer OTHER, SELFPAY ==
--- NOTE | ~2024-09-04 | XR_ITS ---
CLINICAL HISTORY: swelling to distal right 3rd finger 3 view right 3rd digit Comparison: None Findings: Fragmentation distal to remaining stump 2nd meta carpal. Flexion deformity of the imaged 3rd digit with nonspecific soft tissue swelling. No underlying bony destructive changes of the 3rd digit at this time. Dorsal calcification at distal margin of the proximal phalanx appears old/chronic. 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 Surgical clips noted about the remaining 4th and 5th metacarpals degenerative changes also include imaged wrists. No erosions. No radiopaque foreign body. IMPRESSION: 1. Soft tissue swelling with flexion deformity of the 3rd digit. 2. Calcification dorsal to the proximal phalanx of the 3rd digit appears old/chronic. This document has been electronically signed by: Ambrosio Victor MD on 09/04/2024 21:01:31
[2024-09-04 19:02] VITALS: BP 145/67; PULSE 75; RESP 16; TEMP 37.2; O2SAT 98; BMI 33.5
--- NOTE | 2024-09-04 19:07 | ED_ITS ---
HPI - General Adult General Chief complaint: General Medical Stated complaint: rt middle finger swollen/infected? Time Seen by Provider: 09/04/24 21:47 Related Data Home Medications ?Medication ?Instructions ?Recorded ?Confirmed acetaminophen 500 mg tablet 1,000 mg PO Q8H PRN Pain 02/28/23 02/28/23 albuterol sulfate 90 mcg/actuation 2 puff inhalation Q4H PRN Wheezing 02/28/23 02/28/23 aerosol inhaler atorvastatin 80 mg tablet 80 mg PO DAILY 02/28/23 02/28/23 celecoxib 100 mg capsule 100 mg PO DAILY 02/28/23 02/28/23 fenofibrate 54 mg tablet 54 mg PO DAILY 02/28/23 02/28/23 fluticasone 250 mcg-salmeterol 50 1 inh inhalation BID 02/28/23 02/28/23 mcg/dose blistr powdr for inhalation (Wixela Inhub) metoprolol succinate 25 mg capsule 25 mg PO DAILY 02/28/23 02/28/23 sprinkle, ext. release 24 hr tiotropium bromide 2.5 2 puff inhalation DAILY 02/28/23 02/28/23 mcg/actuation mist for inhalation (Spiriva Respimat) Previous Rx's ?Medication ?Instructions ?Recorded amoxicillin 875 mg-potassium 1 tab PO BID #20 tabs 03/02/23 clavulanate 125 mg tablet oxycodone 5 mg tablet 10 mg (2 x 5 mg) PO Q4H PRN Pain, 03/02/23 Moderate(Pain Scale 4-6) #15 tabs benzonatate 200 mg capsule 200 mg PO TID 5 days #15 caps 05/20/24 oxycodone 5 mg capsule 5 mg PO Q8H PRN cough 3 days #9 05/20/24 caps prednisone 20 mg tablet 40 mg (2 x 20 mg) PO DAILY 5 days 05/20/24 #10 tabs cephalexin 500 mg capsule 500 mg PO QID 10 days #40 caps 09/04/24 doxycycline hyclate 100 mg tablet 100 mg PO BID #20 tabs 09/04/24 Allergies Allergy/AdvReac Type Severity Reaction Status Date / Time No Known Allergies Allergy Verified 09/04/24 19:03 COUNTS INCLUDE 234 BEDS AT THE [facility] Past Medical History Medical History Mixed hyperlipidemia Essential hypertension Coronary artery disease Social History Social History Household Members: Spouse Housing: House Do you presently have visiting nurse or other home services: No Alcohol intake: never Patient Tobacco Use Status: Current everyday Tobacco user Tobacco use type: Cigarette Cigarettes Per Day: 2 Smoked in Last 30 Days: Yes Use of substances other than those prescribed or required for medical reasons: No Advance Directives: No Advance Directives Information Provided: Yes Do you have a plan to hurt others: No Plan service: Yes Physical Exam ED Vital Signs: Vital Signs - 24 hr 09/04/24 19:02 09/04/24 22:17 09/04/24 22:25 Temperature 98.9 F 98.1 F 98.1 F Pulse Rate 75 71 71 Respiratory Rate 16 18 18 Blood Pressure 145/67 H 156/75 H 156/75 H Pulse Oximetry 98 96 96 Oxygen Delivery Method Room Air Room Air BMI result Body Mass Index 33.5 Course Course Course Narrative: This is a Rapid Medical Examination (RME) performed by Bob Caraballo PA-C in triage. Full HPI, ROS, assessment and treatment plan per primary provider in the Main ED. 59 yo L hand dominant male here for evaluation of increasing swelling/ pain to right 3rd digit 1 month, worsening x1 week. Reports initially slicing the distal aspect of his right 3rd digit with a potato spotter around Thanksgiving. Since this time reports multiple contusions/cuts to the distal aspect of the finger. The finger is now painful and swollen. Admits to discoloration at the tip of the finger. denies drainage from the area. States his tetanus was last updated in 2009. Reports feeling nauseous every time he bumps the finger secondary to the pain. 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 no hx DM. Plan: Labs, x-ray Medications Administered Discontinued Medications Generic Name Dose Route Start Last Admin Trade Name Freq PRN Reason Stop Dose Admin Cephalexin HCl 500 mg 09/04/24 22:01 09/04/24 22:17 Cephalexin 500 Mg Capsule PO 09/04/24 22:02 500 mg ONCE ONE Administration Doxycycline Monohydrate 100 mg 09/04/24 22:01 09/04/24 22:17 Doxycycline Monohydrate 100 Mg Capsule PO 09/04/24 22:02 100 mg ONCE ONE Administration Medical Decision Making Lab Data 09/04/24 19:27 09/04/24 19:26 Labs: Lab Results 09/04/24 09/04/24 Range/Units 19:26 19:27 WBC 9.9 (4.8-10.8) X10*3/uL RBC 4.63 (4.60-5.80) X10*6/uL Hgb 14.3 (14.0-18.0) g/dl Hct 41.6 L (42.0-52.0) % MCV 89.8 (80.0-98.0) fL MCH 30.9 (27.0-33.0) pg MCHC 34.4 (31.0-36.0) g/dl RDW 14.0 (11.0-16.0) % Plt Count 242 (160-400) X10*3/uL MPV 9.6 (9.4-12.4) fL Immature Gran % (Auto) 0.3 (0.0-0.4) % Neut % (Auto) 75.6 H (45-73) % Lymph % (Auto) 17.1 L (20-40) % [place] % (Auto) 5.4 (2-11) % Eos % (Auto) 1.1 (0-4) % Baso % (Auto) 0.5 (0-2) % Lymph # (Auto) 1.7 (1.2-4.9) X10*3/uL [place] # (Auto) 0.5 (0.1-1.2) X10*3/uL Eos # (Auto) 0.1 (0.0-0.4) X10*3/uL Baso # (Auto) 0.1 (0.0-0.2) X10*3/uL Abs Immat Gran (auto) 0.03 (0.00-0.03) X10*3/uL Absolute Neuts (auto) 7.5 (2.0-8.3) x10*3/uL Absolute Nucleated RBC 0.000 (0.0-0.012) X10*3/uL Nucleated RBC % (auto) 0.0 (0.0-0.2) /100WBC ESR 11 (0-15) MM/HR Sodium 142 (135-145) mmol/L Potassium 3.5 (3.3-5.1) mmol/L Chloride 111 H (96-108) mmol/L Carbon Dioxide 23 (22-29) mmol/L Anion Gap 12 (12-20) BUN 13 (9-16) mg/dL Creatinine 0.80 (0.5-1.4) mg/dL Estim Creat Clear Calc 114.6 Estimated GFR > 60 Random Glucose 110 (60-115) mg/dL Calcium 9.0 (8.4-10.2) mg/dL Total Bilirubin 0.3 (0.0-1.0) mg/dL AST 21 (5-37) U/L ALT 23 (0-40) U/L Alkaline Phosphatase 77 (39-117) U/L C-Reactive Protein 0.53 H (< or = 0.50) mg/dL Total Protein 6.5 (6.5-8.0) g/dL Albumin 3.9 (3.5-5.0) g/dL Discharge Plan Discharge Clinical Impression: Cellulitis of finger of right hand Patient Disposition: Home, Self-Care Instructions: Cellulitis (ED) Additional Instructions: Take antibiotic as prescribed Follow with your PCP Report to the ER if worsening of the swelling or redness or pain of the finger Prescriptions: New cephalexin 500 mg capsule 500 mg PO QID 10 Days Qty: 40 0RF doxycycline hyclate 100 mg tablet 100 mg PO BID Qty: 20 0RF No Action fluticasone propion-salmeterol [Wixela Inhub] 250-50 mcg/dose Blister With Device 1 inh INHALATION BID atorvastatin 80 mg Tablet 80 mg PO DAILY acetaminophen 500 mg Tablet 1,000 mg PO Q8H PRN (Reason: Pain) albuterol sulfate 90 mcg/actuation Hfa Aerosol Inhaler 2 puff INHALATION Q4H PRN (Reason: Wheezing) celecoxib 100 mg Capsule 100 mg PO DAILY fenofibrate 54 mg Tablet 54 mg PO DAILY Spiriva Respimat 2.5 mcg/actuation Mist 2 puff INHALATION DAILY metoprolol succinate 25 mg Capsule,Sprinkle,Er 24hr 25 mg PO DAILY oxycodone 5 mg Tablet 10 mg PO Q4H PRN (Reason: Pain, Moderate(Pain Scale 4-6)) Qty: 15 0RF Rx Instructions: Partial Fill upon patient request. amoxicillin-pot clavulanate 875-125 mg tablet 1 tab PO BID Qty: 20 0RF prednisone 20 mg tablet 40 mg PO DAILY 5 Days Qty: 10 0RF benzonatate 200 mg capsule 200 mg PO TID 5 Days Qty: 15 0RF oxycodone 5 mg capsule 5 mg PO Q8H PRN (Reason: cough) 3 Days Qty: 9 0RF Rx Instructions: Partial Fill upon patient request. Interventions: ED Discharge Assessment Last Done: 09/04/24 22:25 Discharge Date/Time: 09/04/24 22:25 Print Language: [place]ese
[2024-09-04 19:34] LABS: MANUAL DIFF FLAG NO
[2024-09-04 19:39] LABS: Basophils Absolute Auto 0.1 X10*3/uL (0.0-0.2); Basophils Percent Auto 0.5 % (0-2); Eosinophils Absolute Auto 0.1 X10*3/uL (0.0-0.4); Eosinophils Percent Auto 1.1 % (0-4); Hematocrit 41.6 % (42.0-52.0); Hemoglobin 14.3 g/dl (14.0-18.0); Imm Gran Abs Auto 0.03 X10*3/uL (0.00-0.03); Imm Gran Pct Auto 0.3 % (0.0-0.4); Lymphocytes Absolute Auto 1.7 X10*3/uL (1.2-4.9); Lymphocytes Percent Auto 17.1 % (20-40); Mean Corpuscular HGB Conc 34.4 g/dl (31.0-36.0); Mean Corpuscular Hemoglobin 30.9 pg (27.0-33.0); Mean Corpuscular Volume 89.8 fL (80.0-98.0); Mean Platelet Volume 9.6 fL (9.4-12.4); Monocytes Absolute Auto 0.5 X10*3/uL (0.1-1.2); Monocytes Percent Auto 5.4 % (2-11); Neutrophils Absolute Auto 7.5 x10*3/uL (2.0-8.3); Neutrophils Percent Auto 75.6 % (45-73); Platelet Count 242 X10*3/uL (160-400); Red Blood Count 4.63 X10*6/uL (4.60-5.80); White Blood Count 9.9 X10*3/uL (4.8-10.8)
[2024-09-04 19:51] LABS: Alanine Aminotransferase 23 U/L (0-40); Albumin Level 3.9 g/dL (3.5-5.0); Alkaline Phosphatase 77 U/L (39-117); Anion Gap 12 (12-20); Aspartate Amino Transferase 21 U/L (5-37); Bilirubin Total 0.3 mg/dL (0.0-1.0); Blood Urea Nitrogen 13 mg/dL (9-16); C Reactive Protein 0.53 mg/dL (< or = 0.50); Carbon Dioxide 23 mmol/L (22-29); Chloride 111 mmol/L (96-108); Creatinine Clr Calc Pharmacy 114.6; Estimated Glomerular Filt Rate > 60; Glucose Random 110 mg/dL (60-115); Potassium 3.5 mmol/L (3.3-5.1); Sodium 142 mmol/L (135-145); Total Protein 6.5 g/dL (6.5-8.0)
[2024-09-04 20:21] LABS: Erythrocyte Sedimentation Rate 11 MM/HR (0-15)
--- NOTE | 2024-09-04 22:08 | ED_ITS ---
HPI - Extremity Problem General Chief complaint: General Medical Stated complaint: rt middle finger swollen/infected? 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 and does not have much movement and has not decreased sensation of the right middle finger since then has last month he got slightly superficial avulsion of the skin by sports agent also scraped the tip of the finger few days ago now it is red and tender no pus discharge Related Data Home Medications ?Medication ?Instructions ?Recorded ?Confirmed acetaminophen 500 mg tablet 1,000 mg PO Q8H PRN Pain 02/28/23 02/28/23 albuterol sulfate 90 mcg/actuation 2 puff inhalation Q4H PRN Wheezing 02/28/23 02/28/23 aerosol inhaler atorvastatin 80 mg tablet 80 mg PO DAILY 02/28/23 02/28/23 celecoxib 100 mg capsule 100 mg PO DAILY 02/28/23 02/28/23 fenofibrate 54 mg tablet 54 mg PO DAILY 02/28/23 02/28/23 fluticasone 250 mcg-salmeterol 50 1 inh inhalation BID 02/28/23 02/28/23 mcg/dose blistr powdr for inhalation (Wixela Inhub) metoprolol succinate 25 mg capsule 25 mg PO DAILY 02/28/23 02/28/23 sprinkle, ext. release 24 hr tiotropium bromide 2.5 2 puff inhalation DAILY 02/28/23 02/28/23 mcg/actuation mist for inhalation (Spiriva Respimat) Previous Rx's ?Medication ?Instructions ?Recorded amoxicillin 875 mg-potassium 1 tab PO BID #20 tabs 03/02/23 clavulanate 125 mg tablet oxycodone 5 mg tablet 10 mg (2 x 5 mg) PO Q4H PRN Pain, 03/02/23 Moderate(Pain Scale 4-6) #15 tabs benzonatate 200 mg capsule 200 mg PO TID 5 days #15 caps 05/20/24 oxycodone 5 mg capsule 5 mg PO Q8H PRN cough 3 days #9 05/20/24 caps prednisone 20 mg tablet 40 mg (2 x 20 mg) PO DAILY 5 days 05/20/24 #10 tabs cephalexin 500 mg capsule 500 mg PO QID 10 days #40 caps 09/04/24 doxycycline hyclate 100 mg tablet 100 mg PO BID #20 tabs 09/04/24 Allergies Allergy/AdvReac Type Severity Reaction Status Date / Time No Known Allergies Allergy Verified 09/04/24 19:03 Review of Systems 2 Review of Systems: Yes all other systems are reviewed and are negative [facility] Past Medical History Medical History Mixed hyperlipidemia Essential hypertension Coronary artery disease Social History Social History Household Members: Spouse Housing: House Do you presently have visiting nurse or other home services: No Alcohol intake: never Patient Tobacco Use Status: Current everyday Tobacco user Tobacco use type: Cigarette Cigarettes Per Day: 2 Smoked in Last 30 Days: Yes Use of substances other than those prescribed or required for medical reasons: No Advance Directives: No Advance Directives Information Provided: Yes Do you have a plan to hurt others: No Plan service: Yes Physical Exam 2 Vital Signs: Vital Signs: Last Vital Signs Temp 98.9 F 09/04/24 19:02 Pulse 75 09/04/24 19:02 Resp 16 09/04/24 19:02 BP 145/67 H 09/04/24 19:02 Pulse Ox 98 09/04/24 19:02 O2 Del Method Room Air 09/04/24 19:02 BMI result Body Mass Index 33.5 Extrem: Hand/finger images: 1. Right index finger is status post amputation 2. Right middle finger with limited flex ion and limited sensations since the surgery was done distal part of the finger showed slight erythema with no pus discharge superficial abrasions are present Medical Decision Making Medical Decision Making MDM Narrative: Patient with chronic inflammatory changes of the right index finger from previous injuries has slight redness and tenderness x-ray negative for deeper injuries or bony erosion will prescribe doxycycline cephalexin for local cellulitis of the distal part of the finger no signs of tenosynovitis at this time no local warmth no pus discharge. Labs were normal Lab Data [facility] Lab Attestation statement: I reviewed the patient's lab results. 09/04/24 19:27 09/04/24 19:26 Labs: Lab Results 09/04/24 09/04/24 Range/Units 19:26 19:27 WBC 9.9 (4.8-10.8) X10*3/uL RBC 4.63 (4.60-5.80) X10*6/uL Hgb 14.3 (14.0-18.0) g/dl Hct 41.6 L (42.0-52.0) % MCV 89.8 (80.0-98.0) fL MCH 30.9 (27.0-33.0) pg MCHC 34.4 (31.0-36.0) g/dl RDW 14.0 (11.0-16.0) % Plt Count 242 (160-400) X10*3/uL MPV 9.6 (9.4-12.4) fL Immature Gran % (Auto) 0.3 (0.0-0.4) % Neut % (Auto) 75.6 H (45-73) % Lymph % (Auto) 17.1 L (20-40) % [place] % (Auto) 5.4 (2-11) % Eos % (Auto) 1.1 (0-4) % Baso % (Auto) 0.5 (0-2) % Lymph # (Auto) 1.7 (1.2-4.9) X10*3/uL [place] # (Auto) 0.5 (0.1-1.2) X10*3/uL Eos # (Auto) 0.1 (0.0-0.4) X10*3/uL Baso # (Auto) 0.1 (0.0-0.2) X10*3/uL Abs Immat Gran (auto) 0.03 (0.00-0.03) X10*3/uL Absolute Neuts (auto) 7.5 (2.0-8.3) x10*3/uL Absolute Nucleated RBC 0.000 (0.0-0.012) X10*3/uL Nucleated RBC % (auto) 0.0 (0.0-0.2) /100WBC ESR 11 (0-15) MM/HR Sodium 142 (135-145) mmol/L Potassium 3.5 (3.3-5.1) mmol/L Chloride 111 H (96-108) mmol/L Carbon Dioxide 23 (22-29) mmol/L Anion Gap 12 (12-20) BUN 13 (9-16) mg/dL Creatinine 0.80 (0.5-1.4) mg/dL Estim Creat Clear Calc 114.6 Estimated GFR > 60 Random Glucose 110 (60-115) mg/dL Calcium 9.0 (8.4-10.2) mg/dL Total Bilirubin 0.3 (0.0-1.0) mg/dL AST 21 (5-37) U/L ALT 23 (0-40) U/L Alkaline Phosphatase 77 (39-117) U/L C-Reactive Protein 0.53 H (< or = 0.50) mg/dL Total Protein 6.5 (6.5-8.0) g/dL Albumin 3.9 (3.5-5.0) g/dL Independent Interpretation I performed an independent interpretation of an: Plain X-Ray Radiology Impression Discussion of test interpretation with radiology: I have reviewed the radiologist's reading. Radiologist Impression: [place] [id number] XRay Report Signed Patient: Robert Pinon MR#: [id number] : 1965 Acct:[id number] Age/Sex: 59 / M ADM Date: 09/04/24 Loc: .ED Attending Dr: Ordering Physician: Nichelle Caraballo Date of Service: 09/04/24 Procedure(s): XR finger RT min 2V Accession Number(s): [id number] cc: Mihir Mccrary MD; Nichelle Caraballo~ CLINICAL HISTORY: swelling to distal right 3rd finger 3 view right 3rd digit Comparison: None Findings: Fragmentation distal to remaining stump 2nd meta carpal. Flexion deformity of the imaged 3rd digit with nonspecific soft tissue swelling. No underlying bony destructive changes of the 3rd digit at this time. Dorsal calcification at distal margin of the proximal phalanx appears old/chronic. 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 Surgical clips noted about the remaining 4th and 5th metacarpals degenerative changes also include imaged wrists. No erosions. No radiopaque foreign body. IMPRESSION: 1. Soft tissue swelling with flexion deformity of the 3rd digit. 2. Calcification dorsal to the proximal phalanx of the 3rd digit appears old/chronic. This document has been electronically signed by: Ambrosio Victor MD on 09/04/2024 21:01:31 Discharge Plan Discharge Clinical Impression: Cellulitis of finger of right hand Patient Disposition: Home, Self-Care Instructions: Cellulitis (ED) Additional Instructions: Take antibiotic as prescribed Follow with your PCP Report to the ER if worsening of the swelling or redness or pain of the finger Prescriptions: New cephalexin 500 mg capsule 500 mg PO QID 10 Days Qty: 40 0RF doxycycline hyclate 100 mg tablet 100 mg PO BID Qty: 20 0RF No Action fluticasone propion-salmeterol [Wixela Inhub] 250-50 mcg/dose Blister With Device 1 inh INHALATION BID atorvastatin 80 mg Tablet 80 mg PO DAILY acetaminophen 500 mg Tablet 1,000 mg PO Q8H PRN (Reason: Pain) albuterol sulfate 90 mcg/actuation Hfa Aerosol Inhaler 2 puff INHALATION Q4H PRN (Reason: Wheezing) celecoxib 100 mg Capsule 100 mg PO DAILY fenofibrate 54 mg Tablet 54 mg PO DAILY Spiriva Respimat 2.5 mcg/actuation Mist 2 puff INHALATION DAILY metoprolol succinate 25 mg Capsule,Sprinkle,Er 24hr 25 mg PO DAILY oxycodone 5 mg Tablet 10 mg PO Q4H PRN (Reason: Pain, Moderate(Pain Scale 4-6)) Qty: 15 0RF Rx Instructions: Partial Fill upon patient request. amoxicillin-pot clavulanate 875-125 mg tablet 1 tab PO BID Qty: 20 0RF prednisone 20 mg tablet 40 mg PO DAILY 5 Days Qty: 10 0RF benzonatate 200 mg capsule 200 mg PO TID 5 Days Qty: 15 0RF oxycodone 5 mg capsule 5 mg PO Q8H PRN (Reason: cough) 3 Days Qty: 9 0RF Rx Instructions: Partial Fill upon patient request. Print Language: Azerbaijani
[2024-09-04 22:17] VITALS: BP 156/75; PULSE 71; RESP 18; TEMP 36.7; O2SAT 96
[2024-09-04] MEDS: Doxycycline Monohydrate 100 MG CAPSULE PO (22:17)
[2024-09-04] MEDS: cephALEXin 500 MG CAPSULE PO (22:17)
[2024-09-04 22:25] VITALS: BP 156/75; PULSE 71; RESP 18; TEMP 36.7; O2SAT 96
== END 2024-09-04 22:25 | disposition home or self-care (01) ==
PROVIDERS: Physician Assistant Medical; Emergency Provider Internal Medicine; PCP Internal Medicine
DX: L03.113 Cellulitis of right upper limb (principal); M79.644 Pain in right finger(s)
CPT/HCPCS: 36415; 73140; 80053; 85025; 85652; 86140; 99283; 99284

== ENCOUNTER → 2024-09-04 19:06 | Outpatient (BNV) | payer OTHER, SELFPAY | PROVIDERS: Emergency Provider Internal Medicine; PCP Internal Medicine; Visit Provider Radiology Neuroradiology | DX: R22.31 Localized swelling, mass and lump, right upper limb (principal) | CPT/HCPCS: 73140 ==